=== PATIENT | male | born 1960 | race Asian ===

== ENCOUNTER 2019-07-20 11:36 | Inpatient (IN) | payer MEDICARE ==
[~2019-07-20] VITALS: Ht 170.2 cm; Wt 84.6 kg
[~2019-07-20 11:36] MED LIST: ACET-93 PO; BACL10TA PO; DIAZ10TA PO; LISI-552 PO; LISI10TA2 PO; MELA3TAB PO; METH750T3 PO; OXYC-465 PO; OXYC-471 PO; SENN-40 PO
[2019-07-20] MEDS ORDERED: DICYCLOMINE 10 MG/ML (BENTYL) 2 ML AMP IM STA (11:53)
[2019-07-20] MEDS ORDERED: KETOROLAC 30 MG/ML VIAL IVP ONE ×2 (12:00→18:15)
[2019-07-20] MEDS ORDERED: NS IV 1000 ML 1,000 ML IV SCH ×2 (12:00→14:30)
--- NOTE | 2019-07-20 12:02 | ED Abdominal Pain ---
General Chief Complaint: Abdominal/GI Problems Stated Complaint: ABD PAIN Nursing Triage Note: ABDOMINAL PAIN STARTED YESTERDAY ON THE RIGHT LOWER SIDE BUT ITS DIFFUSE PAIN NOW. WAS AT YESTERDAY FOR HIS ROUTINEBACK INJECTIONS FOR CHRONIC BACK PAIN AND HIS BACK IS HURTING MORE TODAY. LAST BM WAS YESTERDAY. Sepsis Screen: No Definite Risk Source of Information: Patient Exam Limitations: No Limitations History of Present Illness Date Seen by Provider: Jul 20, 2019 Time Seen by Provider: 11:50 Initial Comments The patient is a pleasant 58-year-old male presents for evaluation of generalized abdominal discomfort and constipation over the last 24 hours or so. He states that he has a history of chronic back pain and was at yesterday getting a back injection. He states that at that time he was not having any abdominal discomfort. He reports a normal bowel movement yesterday during the day but has been unable to have another bowel movement since that time. He denies any history of bowel obstructions but does deal with chronic constipation which she reports is secondary to his chronic back pain and opiates. He denies fevers or chills, vomiting, rectal bleeding or pain, urinary complaints, chest pain or shortness of breath, dizziness or syncope. He reports that his back pain is essentially at baseline right now. He is alert and oriented 4, calm, and appears to be in no distress at this time. Timing/Duration: 12-24 Hours Severity/Quality: Moderate Location: Generalized Abdomen Activities at Onset: None Associated Symptoms: Back Pain (CHRONIC) Allergies and Home Medications Allergies Coded Allergies: No Known Allergies (Verified Allergy, Unknown, 11/04/15) Home Medications Acetaminophen 500 Mg Tablet, 1,000 MG PO Q6H PRN for PAIN, (Reported) Baclofen 10 Mg Tablet, 10 MG PO QID Prescribed by: YULY MG on 11/08/15 1042 Lisinopril 20 Mg Tablet, 20 MG PO DAILY, (Reported) Methocarbamol 750 Mg Tablet, 750 MG PO Q8H PRN for MUSCLE SPASMS, (Reported) Oxycodone HCl/Acetaminophen 1 Each Tablet, 1 EACH PO Q4H PRN for PAIN, (Reported) Sennosides/Docusate Sodium 1 Each Tablet, 1 EACH PO BID, (Reported) Patient Home Medication List Home Medication List Reviewed: Yes Review of Systems Review of Systems Constitutional: no symptoms reported EENTM: No Symptoms Reported Respiratory: No Symptoms Reported Cardiovascular: No Symptoms Reported Gastrointestinal: Abdominal Pain, Constipated Genitourinary: No Symptoms Reported Musculoskeletal: back pain (CHRONIC) Skin: no symptoms reported Psychiatric/Neurological: No Symptoms Reported Endocrine: No Symptoms Reported Hematologic/Lymphatic: No Symptoms Reported All Other Systems Reviewed Negative Unless Noted: Yes Past [id number]-[id number] Hx Past Med/Social Hx: Reviewed Nursing Past Med/Soc Hx Patient Social History Recent Foreign Travel: No Contact w/Someone Who Travel: No Recent Infectious Disease Expo: No Immunizations Up To Date Date of Influenza Vaccine: Nov 01, 2015 Past Medical History Asthma, COPD Currently Using CPAP: No Currently Using BIPAP: No Hypertension Chronic Constipation Degenerate Disk Disease, Arthritis, Back Injury, Chronic Back Pain, Fractures, Spasms Hearing Impairment: Denies Sleep Difficulties, Anxiety, Depression Physical Exam Vital Signs Vital Signs - First Documented 07/20/19 11:53 Temp 36.7 Pulse 64 Resp 16 B/P (MAP) 136/117 (123) Pulse Ox 100 O2 Delivery Room Air Capillary Refill : Less Than 3 Seconds Height/Weight/BMI Height: 5'7.00" Weight: 185lbs. 0.0oz. 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 pool II-XII nml as tested, no motor/sensory deficits, alert, normal mood/affect, oriented x 3 Skin: normal color, warm/dry Progress/Results/Core Measures Results/Orders Lab Results Laboratory Tests Test 07/20/19 12:04 07/20/19 12:12 Range/Units Urine Color YELLOW Urine Clarity CLEAR Urine pH 5.5 5-9 Urine Specific [place] 1.025 H 1.016-1.022 Urine Protein NEGATIVE NEGATIVE Urine Glucose (UA) NEGATIVE NEGATIVE Urine Ketones NEGATIVE NEGATIVE Urine Nitrite NEGATIVE NEGATIVE Urine Bilirubin NEGATIVE NEGATIVE Urine Urobilinogen 0.2 NORMAL MG/DL Urine Leukocyte Esterase NEGATIVE NEGATIVE Urine RBC (Auto) NEGATIVE NEGATIVE Urine RBC NONE /HPF Urine WBC RARE /HPF Urine Squamous Epithelial Cells 2-5 /HPF Urine Crystals NONE /LPF Urine Bacteria NONE /HPF Urine Casts NONE /LPF Urine Mucus SMALL H /LPF Urine Culture Indicated NO White Blood Count 16.6 H 4.3-11.0 10^3/uL Red Blood Count 4.65 4.35-5.85 10^6/uL Hemoglobin 14.0 13.3-17.7 G/DL Hematocrit 43 40-54 % Mean Corpuscular Volume 92 80-99 FL Mean Corpuscular Hemoglobin 30 25-34 PG Mean Corpuscular Hemoglobin Concent 33 32-36 G/DL Red Cell Distribution Width 13.9 10.0-14.5 % Platelet Count 336 130-400 10^3/uL Mean Platelet Volume 11.0 H 7.4-10.4 FL Neutrophils (%) (Auto) 83 H 42-75 % Lymphocytes (%) (Auto) 10 L 12-44 % Monocytes (%) (Auto) 6 0-12 % Eosinophils (%) (Auto) 0 0-10 % Basophils (%) (Auto) 1 0-10 % Neutrophils # (Auto) 13.7 H 1.8-7.8 X 10^3 Lymphocytes # (Auto) 1.7 1.0-4.0 X 10^3 Monocytes # (Auto) 1.0 0.0-1.0 X 10^3 Eosinophils # (Auto) 0.0 0.0-0.3 10^3/uL Basophils # (Auto) 0.1 0.0-0.1 10^3/uL Sodium Level 140 135-145 MMOL/L Potassium Level 3.9 3.6-5.0 MMOL/L Chloride Level 104 98-107 MMOL/L Carbon Dioxide Level 27 21-32 MMOL/L Anion Gap 9 5-14 MMOL/L Blood Urea Nitrogen 17 7-18 MG/DL Creatinine 0.89 0.60-1.30 MG/DL Estimat Glomerular Filtration Rate > 60 BUN/Creatinine Ratio 19 Glucose Level 122 H 70-105 MG/DL Calcium Level 9.2 8.5-10.1 MG/DL Corrected Calcium 9.0 8.5-10.1 MG/DL Total Bilirubin 0.4 0.1-1.0 MG/DL Aspartate Amino Transf (AST/SGOT) 22 5-34 U/L Alanine Aminotransferase (ALT/SGPT) 20 0-55 U/L Alkaline Phosphatase 103 40-136 U/L Total Protein 7.2 6.4-8.2 GM/DL Albumin 4.3 3.2-4.5 GM/DL Amylase Level 416 H 25-125 U/L Lipase 981 H 8-78 U/L My Orders Orders - VANESSA VILLASENOR DO Comprehensive Metabolic Panel (07/20/19 11:53) Lipase (07/20/19 11:53) Amylase (07/20/19 11:53) Ua Culture If Indicated (07/20/19 11:53) Ed Iv/Invasive Line Start (07/20/19 11:53) Cbc With Automated Diff (07/20/19 11:53) Ct Abdomen/Pelvis W (07/20/19 11:53) Ns Iv 1000 Ml (Sodium Chloride 0.9%) (07/20/19 12:00) Dicyclomine Injection (Bentyl Injection) (07/20/19 11:53) Ketorolac Injection (Toradol Injection) (07/20/19 12:00) Iohexol Injection (Omnipaque 350 Mg/Ml 1 (07/20/19 12:30) Received Contrast (Hold Metformin- Contr (07/20/19 12:30) Sodium Chloride Flush (Catheter Flush Sy (07/20/19 12:30) Ns (Ivpb) (Sodium Chloride 0.9% Ivpb Bag (07/20/19 12:30) Manual Differential (07/20/19 12:12) Morphine Injection (Morphine Injection (07/20/19 14:25) Ns Iv 1000 Ml (Sodium Chloride 0.9%) (07/20/19 14:30) Medications Given in ED Current Medications Medications Dose Ordered Sig/Angie Route Start Time Stop Time Status Last Admin Dose Admin Iohexol 100 ml ONCE ONCE IV 07/20/19 12:30 07/20/19 12:31 DC 07/20/19 13:14 100 ML Ketorolac Tromethamine 30 mg ONCE ONCE IVP 07/20/19 12:00 07/20/19 12:01 DC 07/20/19 12:08 30 MG Sodium Chloride 10 ml NEEDED PRN IV 10/10/19 12:30 07/20/19 13:14 10 ML Sodium Chloride 100 ml ONCE ONCE IV 07/20/19 12:30 07/20/19 12:31 DC 07/20/19 13:14 80 ML Vital Signs/I&O 07/20/19 11:53 Temp 36.7 Pulse 64 Resp 16 B/P (MAP) 136/117 (123) Pulse Ox 100 O2 Delivery Room Air Blood Pressure Mean: 123 Progress Progress Note : Progress Note @1440 - Patient updated on lab and imaging results. He is agreeable to admission at [facility]. Dr. Ratliff excepts admission at this time. Diagnostic Imaging Comments [facility] [place], [place] NAME: VANESSA MASSEY [facility] REC#: [id number] PT STATUS: REG ER : 1960 PHYSICIAN: VANESSA VILLASENOR DO ADMIT DATE: 07/20/19/ER FS Draft Date of Exam:07/20/19 CT ABDOMEN/PELVIS W PROCEDURE: CT abdomen and pelvis with contrast. TECHNIQUE: Multiple contiguous axial images were obtained through the abdomen and pelvis after administration of intravenous contrast. Auto Exposure Controls were utilized during the CT exam to meet ALARA standards for radiation dose reduction. DATE: July 20, 2019. COMPARISON: None. INDICATION: 58-year-old male, abdominal pain. FINDINGS: There are predominantly linear opacities in the right middle lobe, right lower lobe, left lower lobe, and lingula compatible with atelectasis and/or scarring. The heart is not enlarged. There is no pericardial effusion. The liver is normal in size and contour. There is no identified liver lesion. The main, right, and left portal veins are grossly patent. The gallbladder is distended. There is no CT apparent gallstone. There is no inflammatory stranding specifically adjacent to the gallbladder. There is mild intrahepatic bile duct dilation. The common bile duct is abnormally dilated and measures up to 1.4 cm in diameter. There is no CT apparent common bile duct stone. There is no identified ampullary mass. The main pancreatic duct is not abnormally dilated. There is no identified pancreatic mass. There is prominent inflammatory stranding at the level of the pancreatic head and uncinate process as well as subjacent to the second and third portions of duodenum and also is mildly present at the level of the first portion of duodenum. There is no clear loss of normal pancreatic parenchymal architecture. There is no pancreatic necrosis. There is splenic tissue in the left upper quadrant including an accessory splenule on axial image 21. The adrenal glands are unremarkable. There is a 2 mm low-attenuation left renal lesion on axial image 39 which is too small to characterize. There is no hydronephrosis. There is no identified ureteral stone. Urinary bladder is unremarkable. The intestinal tract is not distended. The appendix is normal and well seen on axial image 57 and adjacent sequential images. There is abnormal mucosal enhancement of the distal stomach and first and second portions of duodenum. There is wall thickening of the second and proximal third portion of duodenum. There is no free intraperitoneal air. There is no drainable fluid collection. There is abnormal fluid attenuation along the right posterior aspect of the peritoneal cavity and also somewhat along the extent of the right ureter. There is a fat-containing intra-abdominal wall hernia without associated complication. There are atherosclerotic calcifications. The celiac axis, superior mesenteric artery, bilateral renal arteries, and inferior mesenteric artery are patent. There is no identified abnormally enlarged lymph node in the abdomen or pelvis which meets CT size criteria for adenopathy. There are postoperative related changes of the spine. There is no identified acute bony abnormality. There are several chronic-appearing left rib deformities. IMPRESSION: CT ABDOMEN AND PELVIS. 1. Prominent abnormal inflammatory stranding centered primarily adjacent to the first, second, and proximal third portions of duodenum with abnormal mucosal enhancement of the distal stomach, first and second portions of duodenum, and abnormal bowel wall thickening of the second and proximal third portions of duodenum. This is most suspicious for an infectious or inflammatory gastritis and duodenitis. 2. There is some inflammatory stranding adjacent to the pancreatic head and uncinate process is more likely related to the adjacent bowel process rather than focal pancreatitis. Correlation with laboratory values may be of benefit. 3. Abnormally dilated common bile duct and mild intrahepatic bile duct dilation without CT apparent common bile duct stone, cholelithiasis, or ampullary mass. Normal caliber of the main pancreatic duct. Recommend correlation with laboratory values. If needed, further evaluation with ERCP or MRCP may be of benefit. 4. Additional incidental findings as above. Dictated on workstation # [id number] Dict: 07/20/19 1329 Trans: 07/20/19 1405 DEREK [id number] Interpreted by: FERNANDO ANDERSON MD Electronically signed by: Departure Communication (Admissions) Time/Spoke to Admitting Phy: 14:50 Dr. Ratliff excepts admission at this time. Impression Primary Impression: Acute pancreatitis Additional Impression: Duodenitis Disposition: ADMITTED INPATIENT Condition: Stable Admissions Decision to Admit Reason: Admit from ER (General) Decision to Admit/Date: Jul 20, 2019 Time/Decision to Admit Time: 14:50 Departure-Patient Inst. Referrals: GUSTAVO COLLINS MD (PCP/Family) Primary Care Physician VANESSA VILLASENOR DO Jul 20, 2019 12:02
[2019-07-20 12:20] LABS: BILIRUBIN,URINE NEGATIVE (NEGATIVE); CLARITY,URINE CLEAR; COLOR,URINE YELLOW; GLUCOSE, URINE (UA) NEGATIVE (NEGATIVE); KETONES,URINE NEGATIVE (NEGATIVE); LEUKOCYTE ESTERASE ,URINE NEGATIVE (NEGATIVE); NITRITE,URINE NEGATIVE (NEGATIVE); PH,URINE 5.5 (5-9); PROTEIN,URINE NEGATIVE (NEGATIVE); UROBILINOGEN,URINE 0.2 MG/DL (NORMAL); WBC,URINE RARE /HPF
[2019-07-20] MEDS ORDERED: HOLD METFORMIN - RECEIVED CONTRAST 20 ML VIAL IV SCH (12:30)
[2019-07-20] MEDS ORDERED: NS 100 ML (IVPB) BAG IV ONE (12:30)
[2019-07-20] MEDS ORDERED: IOHEXOL 350 MG/ML 100 ML (OMNIPAQUE 350) VIAL IV ONE (12:30)
[2019-07-20] MEDS ORDERED: CATHETER FLUSH 10 ML SYR IV PRN (12:30)
[2019-07-20 12:32] LABS: BASOPHILS % (AUTO) 1 % (0-10); EOSINOPHILS % (AUTO) 0 % (0-10); HEMATOCRIT 43 % (40-54); LYMPHOCYTES # (AUTO) 1.7 X 10^3 (1.0-4.0); LYMPHOCYTES % (AUTO) 10 % (12-44); MEAN CORPUSCULAR HEMOGLOBIN 30 PG (25-34); MEAN CORPUSCULAR HGB CONC 33 G/DL (32-36); MEAN CORPUSCULAR VOLUME 92 FL (80-99); MONOCYTES % (AUTO) 6 % (0-12); NEUTROPHILS # (AUTO) 13.7 X 10^3 (1.8-7.8); NEUTROPHILS % (AUTO) 83 % (42-75); PLATELET COUNT 336 10^3/uL (130-400); RED CELL DISTRIBUTION WIDTH 13.9 % (10.0-14.5); WHITE BLOOD COUNT 16.6 10^3/uL (4.3-11.0)
[2019-07-20 12:33] LABS: BASOPHILS # (AUTO) 0.1 10^3/uL (0.0-0.1)
[2019-07-20 12:50] LABS: BUN/CREATININE RATIO 19; CALCIUM 9.2 MG/DL (8.5-10.1); CARBON DIOXIDE 27 MMOL/L (21-32); CHLORIDE 104 MMOL/L (98-107); CREATININE SERUM 0.89 MG/DL (0.60-1.30); GFR ESTIMATED > 60; GLUCOSE 122 MG/DL (70-105); POTASSIUM 3.9 MMOL/L (3.6-5.0); SODIUM 140 MMOL/L (135-145)
[2019-07-20 12:51] LABS: ALANINE AMINOTRANSFERASE 20 U/L (0-55); ALBUMIN 4.3 GM/DL (3.2-4.5); ALKALINE PHOSPHATASE 103 U/L (40-136); AMYLASE 416 U/L (25-125); BILIRUBIN,TOTAL 0.4 MG/DL (0.1-1.0); LIPASE 981 U/L (8-78); TOTAL PROTEIN 7.2 GM/DL (6.4-8.2)
--- NOTE | 2019-07-20 14:06 | Diagnostic Imaging Report ---
PROCEDURE: CT abdomen and pelvis with contrast. TECHNIQUE: Multiple contiguous axial images were obtained through the abdomen and pelvis after administration of intravenous contrast. Auto Exposure Controls were utilized during the CT exam to meet ALARA standards for radiation dose reduction. DATE: July 20, 2019. COMPARISON: None. INDICATION: 58-year-old male, abdominal pain. FINDINGS: There are predominantly linear opacities in the right middle lobe, right lower lobe, left lower lobe, and lingula compatible with atelectasis and/or scarring. The heart is not enlarged. There is no pericardial effusion. The liver is normal in size and contour. There is no identified liver lesion. The main, right, and left portal veins are grossly patent. The gallbladder is distended. There is no CT apparent gallstone. There is no inflammatory stranding specifically adjacent to the gallbladder. There is mild intrahepatic bile duct dilation. The common bile duct is abnormally dilated and measures up to 1.4 cm in diameter. There is no CT apparent common bile duct stone. There is no identified ampullary mass. The main pancreatic duct is not abnormally dilated. There is no identified pancreatic mass. There is prominent inflammatory stranding at the level of the pancreatic head and uncinate process as well as subjacent to the second and third portions of duodenum and also is mildly present at the level of the first portion of duodenum. There is no clear loss of normal pancreatic parenchymal architecture. There is no pancreatic necrosis. There is splenic tissue in the left upper quadrant including an accessory splenule on axial image 21. The adrenal glands are unremarkable. There is a 2 mm low-attenuation left renal lesion on axial image 39 which is too small to characterize. There is no hydronephrosis. There is no identified ureteral stone. Urinary bladder is unremarkable. The intestinal tract is not distended. The appendix is normal and well seen on axial image 57 and adjacent sequential images. There is abnormal mucosal enhancement of the distal stomach and first and second portions of duodenum. There is wall thickening of the second and proximal third portion of duodenum. There is no free intraperitoneal air. There is no drainable fluid collection. There is abnormal fluid attenuation along the right posterior aspect of the peritoneal cavity and also somewhat along the extent of the right ureter. There is a fat-containing intra-abdominal wall hernia without associated complication. There are atherosclerotic calcifications. The celiac axis, superior mesenteric artery, bilateral renal arteries, and inferior mesenteric artery are patent. There is no identified abnormally enlarged lymph node in the abdomen or pelvis which meets CT size criteria for adenopathy. There are postoperative related changes of the spine. There is no identified acute bony abnormality. There are several chronic-appearing left rib deformities. IMPRESSION: CT ABDOMEN AND PELVIS. 1. Prominent abnormal inflammatory stranding centered primarily adjacent to the first, second, and proximal third portions of duodenum with abnormal mucosal enhancement of the distal stomach, first and second portions of duodenum, and abnormal bowel wall thickening of the second and proximal third portions of duodenum. This is most suspicious for an infectious or inflammatory gastritis and duodenitis. 2. There is some inflammatory stranding adjacent to the pancreatic head and uncinate process which is more likely related to the adjacent bowel process rather than focal pancreatitis. Correlation with laboratory values may be of benefit. 3. Abnormally dilated common bile duct and mild intrahepatic bile duct dilation without CT apparent common bile duct stone, cholelithiasis, or ampullary mass. Normal caliber of the main pancreatic duct. Recommend correlation with laboratory values. If needed, further evaluation with ERCP or MRCP may be of benefit. 4. Additional incidental findings as above. Dictated by: Dictated on workstation # [id number]
[2019-07-20] MEDS ORDERED: morphine INJ 10 MG/ML 1ML (SYR OR VIAL) IVP STA (14:25)
--- NOTE | 2019-07-20 15:28 | NUR ---
TELEPHONE REPORT TAKEN FORM Ozzy MYRICK RN AT THIS TIME. THIS RN WILL ASSUME CARE OF THIS PATIENT,WHEN HE ARRIVES TO ROOM [address] [facility] IN [place].
--- NOTE | 2019-07-20 15:28 | NUR ---
REPORT GIVEN TO DEONTE LINTON AT THIS TIME.
[2019-07-20 15:41] LABS: BAND NEUTROPHILS 4 %; BASOPHILS % (MANUAL) 1 %; EOSINOPHILS % (MANUAL) 0 %; LYMPHOCYTES % (MANUAL) 18 %; MONOCYTES % (MANUAL) 6 %; NEUTROPHILS % (MANUAL) 71 %; RBC MORPH NORMAL
[2019-07-20] MEDS ORDERED: KETOROLAC 30 MG/ML VIAL ONE (17:49)
[2019-07-20] MEDS: NS IV 1000 ML 1,000 ML IV SCH (18:01)
--- NOTE | 2019-07-20 18:06 | NUR ---
Toradol 30 mg iv overrode by this RN per Dr. García, not given by this rn. The medication was given by this data warehouse manager (DEONTE Berman)
--- NOTE | 2019-07-20 18:37 | Consultation - Surgery ---
SELENA ALTAMIRANO,MED STUDENT 07/20/19 1837: History of Present Illness History of Present Illness Patient Consulted On(fransisca/time) 07/20/19 18:31 Date Seen by Provider: Jul 20, 2019 Time Seen by Provider: 18:15 History of Present Illness Surgical consult for duodenitis and pancreatitis Patient is a 58 yo male with complaints of a 1 day history of abdominal pain. He states the pain began last night and was a 10/10 on the pain scale, the location of pain was the RUQ but he states the pain is more diffuse in nature now. It is worse with deep breathing and movement and improved with pressure over the abdomen. He does note chronic constipation and states it is normal for him to use have a bowel movement every 3 days, his most recent bm was yesterday. He has felt bloating and could not sleep last night due to pain. He denies any N/V, heartburn, diarrhea, fevers at this time. He states he had a spinal injection done 2 days ago and his most recent neck surgery was around 3 months ago Allergies and Home Medications Allergies Coded Allergies: No Known Allergies (Verified Allergy, Unknown, 11/04/15) Home Medications Acetaminophen 500 Mg Tablet, 1,000 MG PO Q6H PRN for PAIN, (Reported) Baclofen 10 Mg Tablet, 10 MG PO QID Prescribed by: BRAULIO MG on 11/08/15 1042 Lisinopril 20 Mg Tablet, 20 MG PO DAILY, (Reported) Oxycodone HCl/Acetaminophen 1 Each Tablet, 1 EACH PO Q4H PRN for PAIN, (Reported) Sennosides/Docusate Sodium 1 Each Tablet, 1 EACH PO BID, (Reported) Past Gmnclgj-Rsfhiu-Ngysfa Hx Patient Social History Alcohol Use: Denies Use Recreational Drug Use: No Smoking Status: Former Smoker (quit 10 years ago) Type Used: Cigarettes 2nd Hand Smoke Exposure: No Recent Foreign Travel: No Contact w/Someone Who Travel: No Recent Infectious Disease Expo: No Recent Hopitalizations: No Immunizations Up To Date Date of Pneumonia Vaccine: Jun 11, 2017 Date of Influenza Vaccine: Nov 01, 2015 Seasonal Allergies Seasonal Allergies: No Surgeries History of Surgeries: Yes (SPLEEN 1999, 8 BACK SURGERIES) Respiratory History of Respiratory Disorde: Yes Respiratory Disorders: Asthma, COPD Cardiovascular History of Cardiac Disorders: Yes Cardiac Disorders: Hypertension Neurological History of Neurological Disord: Yes (spasms of arms, legs sometimes) Genitourinary History of Genitourinary Disor: No Gastrointestinal History of Gastrointestinal Di: Yes Gastrointestinal Disorders: Chronic Constipation (secondary to opiod use ) Musculoskeletal History of Musculoskeletal Dis: Yes (legs spasm) Musculoskeletal Disorders: Degenerate Disk Disease, Arthritis, Back Injury, Chronic Back Pain, Fractures, Spasms Endocrine History of Endocrine Disorders: No HEENT History of HEENT Disorders: No Hearing Impairment: Denies Cancer History of Cancer: No Psychosocial History of Psychiatric Problem: Yes (Melatonin for sleep) Behavioral Health Disorders: Sleep Difficulties, Anxiety, Depression Integumentary History of Skin or Integumenta: No Blood Transfusions History of Blood Disorders: No Family Medical History Significant Family History: Cancer (brother with renal cancer), Diabetes (father, brother, son), Other Conditions/Hx (son has titins muscular dystrophy) Review of Systems-General Constitutional: No chills, No fever EENTM: No blurred vision, No nose congestion, No throat pain Respiratory: No cough, No short of breath Cardiovascular: No chest pain, No syncope Gastrointestinal: abdominal pain (diffuse, worse at RUQ), constipation (chronic); No diarrhea, No heartburn, No melena, No nausea, No vomiting Genitourinary: No dysuria, No hematuria, No incontinence Musculoskeletal: back pain, joint pain, neck pain Skin: No pruritus, No rash Psychiatric/Neurological: Denies Headache; Numbness, Weakness Physical Exam-General Problems Physical Exam Vital Signs Vital Signs - First Documented 07/20/19 11:53 Temp 36.7 Pulse 64 Resp 16 B/P (MAP) 136/117 (123) Pulse Ox 100 O2 Delivery Room Air Capillary Refill : Less Than 3 Seconds General Appearance: WD/WN, no apparent distress Eyes: Bilateral Eye PERRL, Bilateral Eye EOMI HEENT: PERRL/EOMI, other (mucous membranes moist) Neck: non-tender; No lymphadenopathy (R), No lymphadenopathy (L) Respiratory: chest non-tender, lungs clear, normal breath sounds, no respiratory distress Cardiovascular: regular rate, rhythm, no murmur Peripheral Pulses: 2+ Radial Pulses (R), 2+ Radial Pulses (L) Gastrointestinal: normal bowel sounds, distended (mildly); No guarding, No rebound; tenderness (diffuse) Extremities: no pedal edema, no calf tenderness Neurologic/Psychiatric: alert, oriented x 3, abnormal gait (ambulates with cane) Skin: normal color, warm/dry Lymphatic: no adenopathy Data Review Labs Laboratory Tests 07/20/19 12:04: Urine Color YELLOW, Urine Clarity CLEAR, Urine pH 5.5, Urine Specific [place] 1.025H, Urine Protein NEGATIVE, Urine Glucose (UA) NEGATIVE, Urine Ketones NEGATIVE, Urine Nitrite NEGATIVE, Urine Bilirubin NEGATIVE, Urine Urobilinogen 0.2, Urine Leukocyte Esterase NEGATIVE, Urine RBC (Auto) NEGATIVE, Urine RBC NONE, Urine WBC RARE, Urine Squamous Epithelial Cells 2-5, Urine Crystals NONE, Urine Bacteria NONE, Urine Casts NONE, Urine Mucus SMALLH, Urine Culture Indicated NO 07/20/19 12:12: White Blood Count 16.6H, Red Blood Count 4.65, Hemoglobin 14.0, Hematocrit 43, Mean Corpuscular Volume 92, Mean Corpuscular Hemoglobin 30, Mean Corpuscular Hemoglobin Concent 33, Red Cell Distribution Width 13.9, Platelet Count 336, Mean Platelet Volume 11.0H, Neutrophils (%) (Auto) 83H, Lymphocytes (%) (Auto) 10L, Monocytes (%) (Auto) 6, Eosinophils (%) (Auto) 0, Basophils (%) (Auto) 1, Neutrophils # (Auto) 13.7H, Lymphocytes # (Auto) 1.7, Monocytes # (Auto) 1.0, Eosinophils # (Auto) 0.0, Basophils # (Auto) 0.1, Neutrophils % (Manual) 71, Lymphocytes % (Manual) 18, Monocytes % (Manual) 6, Eosinophils % (Manual) 0, Basophils % (Manual) 1, Band Neutrophils 4, Blood Morphology Comment NORMAL, Sodium Level 140, Potassium Level 3.9, Chloride Level 104, Carbon Dioxide Level 27, Anion Gap 9, Blood Urea Nitrogen 17, Creatinine 0.89, Estimat Glomerular Filtration Rate > 60, BUN/Creatinine Ratio 19, Glucose Level 122H, Calcium Level 9.2, Corrected Calcium 9.0, Total Bilirubin 0.4, Aspartate Amino Transf (AST/SGOT) 22, Alanine Aminotransferase (ALT/SGPT) 20, Alkaline Phosphatase 103, Total Protein 7.2, Albumin 4.3, Amylase Level 416H, Lipase 981H Assessment/Plan Assessment/Plan Assessment/Plan Duodenitis Pancreatitis Chronic back pain Chronic constipation Continue pain control, IVF, and antiemetics as needed. Continue NPO at this time. Clinical Quality Measures DVT/VTE Risk/Contraindication: Risk Factor Score Per Nursin RFS Level Per Nursing on Admit: 4+=Very High BRAULIO HOUSER DO 07/20/192045: History of Present Illness History of Present Illness Time Seen by Provider: 20:17 History of Present Illness Pt states he has never had pain like this before, it is worse but different than his back pain. When I walked he was on a clear liquid diet. He is very concerned about surgery. Allergies and Home Medications Allergies Coded Allergies: No Known Allergies (Verified Allergy, Unknown, 11/04/15) Home Medications Acetaminophen 500 Mg Tablet, 1,000 MG PO Q6H PRN for PAIN, (Reported) Baclofen 10 Mg Tablet, 10 MG PO QID Prescribed by: BRAULIO MG on 11/08/15 1042 Lisinopril 20 Mg Tablet, 20 MG PO DAILY, (Reported) Oxycodone HCl/Acetaminophen 1 Each Tablet, 1 EACH PO Q4H PRN for PAIN, (Reported) Sennosides/Docusate Sodium 1 Each Tablet, 1 EACH PO BID, (Reported) Patient Home Medication List Home Medication List Reviewed: Yes Past Ywahkkc-Ilbxgw-Xabxzs Hx Patient Social History Alcohol Use: Denies Use Surgeries History of Surgeries: Yes Surgeries: Orthopedic Review of Systems-General Other pt denies any hx of abnormal bleeding or bruising Physical Exam-General Problems Physical Exam Gastrointestinal: other (firm area just above umbilicus and it is most tender here) Data Review Radiology CT ABDOMEN/PELVIS W PROCEDURE: CT abdomen and pelvis with contrast. TECHNIQUE: Multiple contiguous axial images were obtained through the abdomen and pelvis after administration of intravenous contrast. Auto Exposure Controls were utilized during the CT exam to meet ALARA standards for radiation dose reduction. DATE: July 20, 2019. COMPARISON: None. INDICATION: 58-year-old male, abdominal pain. FINDINGS: There are predominantly linear opacities in the right middle lobe, right lower lobe, left lower lobe, and lingula compatible with atelectasis and/or scarring. The heart is not enlarged. There is no pericardial effusion. The liver is normal in size and contour. There is no identified liver lesion. The main, right, and left portal veins are grossly patent. The gallbladder is distended. There is no CT apparent gallstone. There is no inflammatory stranding specifically adjacent to the gallbladder. There is mild intrahepatic bile duct dilation. The common bile duct is abnormally dilated and measures up to 1.4 cm in diameter. There is no CT apparent common bile duct stone. There is no identified ampullary mass. The main pancreatic duct is not abnormally dilated. There is no identified pancreatic mass. There is prominent inflammatory stranding at the level of the pancreatic head and uncinate process as well as subjacent to the second and third portions of duodenum and also is mildly present at the level of the first portion of duodenum. There is no clear loss of normal pancreatic parenchymal architecture. There is no pancreatic necrosis. There is splenic tissue in the left upper quadrant including an accessory splenule on axial image 21. The adrenal glands are unremarkable. There is a 2 mm low-attenuation left renal lesion on axial image 39 which is too small to characterize. There is no hydronephrosis. There is no identified ureteral stone. Urinary bladder is unremarkable. The intestinal tract is not distended. The appendix is normal and well seen on axial image 57 and adjacent sequential images. There is abnormal mucosal enhancement of the distal stomach and first and second portions of duodenum. There is wall thickening of the second and proximal third portion of duodenum. There is no free intraperitoneal air. There is no drainable fluid collection. There is abnormal fluid attenuation along the right posterior aspect of the peritoneal cavity and also somewhat along the extent of the right ureter. There is a fat-containing intra-abdominal wall hernia without associated complication. There are atherosclerotic calcifications. The celiac axis, superior mesenteric artery, bilateral renal arteries, and inferior mesenteric artery are patent. There is no identified abnormally enlarged lymph node in the abdomen or pelvis which meets CT size criteria for adenopathy. There are postoperative related changes of the spine. There is no identified acute bony abnormality. There are several chronic-appearing left rib deformities. IMPRESSION: CT ABDOMEN AND PELVIS. 1. Prominent abnormal inflammatory stranding centered primarily adjacent to the first, second, and proximal third portions of duodenum with abnormal mucosal enhancement of the distal stomach, first and second portions of duodenum, and abnormal bowel wall thickening of the second and proximal third portions of duodenum. This is most suspicious for an infectious or inflammatory gastritis and duodenitis. 2. There is some inflammatory stranding adjacent to the pancreatic head and uncinate process which is more likely related to the adjacent bowel process rather than focal pancreatitis. Correlation with laboratory values may be of benefit. 3. Abnormally dilated common bile duct and mild intrahepatic bile duct dilation without CT apparent common bile duct stone, cholelithiasis, or ampullary mass. Normal caliber of the main pancreatic duct. Recommend correlation with laboratory values. If needed, further evaluation with ERCP or MRCP may be of benefit. 4. Additional incidental findings as above. Dictated by: Dictated on workstation # [id number] Assessment/Plan Assessment/Plan Assessment/Plan I had long discussion with pt regarding what next step was and why I think he probably needs surgery; I believe his pancreatitis is probably due to Gallstones. I thought I may have actually seen a stone in duodenum on CT. I will order an US of GB for tomorrow am. I made him npo and switched his pain medications to IV Dilaudid. I explained what we saw on CT and why food (any food) including liquids is bad for pancreatitis and duodenitis. If he agrees to surgery, we need to wait until his pain is almost gone and pancreatic enzymes are trending down. He understood all of this and I will talk to him more tomorrow and his . Supervisory-Addendum Brief Verification & Attestation Participated in pt care: history, MDM, physical Personally performed: exam, history, MDM Care discussed with: Medical Student Procedures: n/a Verification and Attestation of Medical Student E/M Service A medical student performed and documented this service in my presence. I reviewed and verified all information documented by the medical student and made modifications to such information, when appropriate. I personally performed the physical exam and medical decision making. Braulio Houser, Jul 20, 2019,20:46 SELENA ALTAMIRANO MED STUDENT Jul 20, 2019 18:37 BRAULIO HOUSER DO Jul 20, 2019 20:46
[2019-07-20 20:00] VITALS: BP 144/70
[2019-07-20] MEDS ORDERED: HYDROmorphone 2 MG/ML VIAL (DILAUDID) ONE (20:43)
[2019-07-20] MEDS: HYDROmorphone 2 MG/ML VIAL (DILAUDID) IV PRN ×2 (20:44→23:27)
[2019-07-20] MEDS ORDERED: ONDANSETRON 4 MG/2 ML (SDV) Z0FRAN IVP PRN (20:45)
[2019-07-20] MEDS ORDERED: ALPRAZolam 0.25 MG (XANAX) TAB PO PRN (20:45)
[2019-07-20] MEDS ORDERED: CALCIUM CARBONATE 500 MG (TUMS) TAB.CHEW PO PRN (20:45)
[2019-07-20] MEDS ORDERED: ONDANSETRON 4 MG (ZOFRAN) ORAL DISSOLVE TAB PO PRN (20:45)
[2019-07-20] MEDS ORDERED: ACETAMINOPHEN 500 MG TAB (TYLENOL) PO PRN (20:45)
[2019-07-20] MEDS ORDERED: diphenhydrAMINE 25 MG TAB (BENADRYL) PO PRN (20:45)
[2019-07-20] MEDS ORDERED: MELATONIN 3 MG TABLET PO PRN (20:45)
--- NOTE | 2019-07-20 20:48 | History & Physical-Hospitalist ---
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 Patient reports he has not had any alcohol for 15 years and has not smoked since that time also. He just had an epidural pain injection in on Wednesday and Dr García will be consulted for GB stones that are assessed on CT scan. Source: patient, RN/MD Exam Limitations: no limitations Date Seen 07/20/19 Time Seen by a Provider: 17:30 Attending Physician Ronit Ratliff Pankaj K MD Referring Physician Date of Admission Jul 20, 2019 at 14:55 Home Medications & Allergies Home Medications Reviewed patient Home Medication Reconciliation performed by pharmacy medication reconciliations ocular care technician and/or nursing. Patients Allergies have been reviewed. 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) Alcohol Use: Denies Use Recreational Drug Use: No Smoking Status: Former Smoker (quit 10 years ago) Type Used: Cigarettes 2nd Hand Smoke Exposure: No Recent Foreign Travel: No Contact w/other who traveled: No Recent Hopitalizations: No Recent Infectious Disease Expo: No Immunizations Up To Date Date of Pneumonia Vaccine: Jun 11, 2017 Date of Influenza Vaccine: Nov 01, 2015 Seasonal Allergies Seasonal Allergies: No Past Medical History Surgeries: Orthopedic (spine x 4) Currently Using CPAP: No Currently Using BIPAP: No Cardiac: Hypertension Gastrointestinal: Chronic Constipation (secondary to opiod use ) Musculoskeletal: Degenerate Disk Disease, Arthritis, Back Injury, Chronic Back Pain, Fractures, Spasms Hearing Impairment: Denies Psychosocial: Sleep Difficulties, Anxiety, Depression History of Blood Disorders: No Family History Cancer (brother with renal cancer), Diabetes (father, brother, son), Other Conditions/Hx (son has titins muscular dystrophy) Review of Systems Constitutional: see HPI EENTM: no symptoms reported Respiratory: no symptoms reported Cardiovascular: no symptoms reported Gastrointestinal: abdominal pain, loss of appetite, nausea, vomiting Genitourinary: no symptoms reported Musculoskeletal: no symptoms reported Skin: no symptoms reported Psychiatric/Neurological: No Symptoms Reported All Other Systems Reviewed Negative Unless Noted: Yes Physical Exam Physical Exam Vital Signs Vital Signs - First Documented 07/20/19 11:53 Temp 36.7 Pulse 64 Resp 16 B/P (MAP) 136/117 (123) Pulse Ox 100 O2 Delivery Room Air Capillary Refill : Less Than 3 Seconds Height, Weight, BMI Height: 5'7.00" Weight: 185lbs. 0.0oz. [id number]; 29.20 BMI Method: General Appearance: No Apparent Distress, WD/WN, Chronically ill Eyes: Right Eye Normal Inspection, Right Eye PERRL HEENT: PERRL/EOMI, Normal ENT Inspection, Pharynx Normal, Moist Mucous Membranes Neck: Full Range of Motion, Normal Inspection, Non Tender Respiratory: Chest Non Tender, Lungs Clear, Normal Breath Sounds, No Accessory Muscle Use, No Respiratory Distress Cardiovascular: Regular Rate, Rhythm, No Edema, No Gallop, No JVD, No Murmur, Normal Peripheral Pulses Gastrointestinal: Normal Bowel Sounds, No Organomegaly, No Pulsatile Mass, Soft, Tenderness Back: Normal Inspection, No CVA Tenderness, No Vertebral Tenderness Extremity: Normal Capillary Refill, Normal Inspection, Normal Range of Motion, Non Tender, No Calf Tenderness, No Pedal Edema Neurologic/Psychiatric: Alert, Oriented x3, No Motor/Sensory Deficits, Normal Mood/Affect, 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 Assessment/Plan Admission Diagnosis Assessment: Duodenitis with pancreatitis Possible stones in GB Chronic back pain s/p epidural pain injection Wednesday in Plan: Appreciate Dr García Pain control IVF Admission Status: Inpatient Order (span 2 midnights) Reason for Inpatient Admission: Duodenitis with pancreatits Diagnosis/Problems Diagnosis/Problems (1) Acute pancreatitis Status: Acute (2) Duodenitis Status: Acute (3) Lumbosacral radiculopathy due to degenerative joint disease of spine Status: Acute Clinical Quality Measures DVT/VTE Risk/Contraindication: Risk Factor Score Per Nursin RFS Level Per Nursing on Admit: 4+=Very High RONIT RATLIFF DO Jul 20, 2019 20:48
[2019-07-20] MEDS: MONTELUKAST 10 MG (SINGULAIR) TAB PO SCH (21:50)
[2019-07-21] VITALS (12 sets, daily range): BP systolic 98–157; BP diastolic 56–86
[2019-07-21] MEDS: NS IV 1000 ML 1,000 ML IV SCH ×4 (00:35→18:38)
[2019-07-21] MEDS: HYDROmorphone 2 MG/ML VIAL (DILAUDID) IV PRN ×7 (05:30→23:21)
[2019-07-21 06:48] LABS: BASOPHILS % (AUTO) 0 % (0-10); EOSINOPHILS # (AUTO) 0.1 10^3/uL (0.0-0.3); EOSINOPHILS % (AUTO) 1 % (0-10); HEMATOCRIT 36 % (40-54); HEMOGLOBIN 12.1 G/DL (13.3-17.7); LYMPHOCYTES # (AUTO) 1.6 X 10^3 (1.0-4.0); LYMPHOCYTES % (AUTO) 15 % (12-44); MEAN CORPUSCULAR HEMOGLOBIN 30 PG (25-34); MEAN CORPUSCULAR HGB CONC 33 G/DL (32-36); MEAN CORPUSCULAR VOLUME 90 FL (80-99); MEAN PLATELET VOLUME 11.6 FL (7.4-10.4); MONOCYTES # (AUTO) 0.7 X 10^3 (0.0-1.0); MONOCYTES % (AUTO) 7 % (0-12); NEUTROPHILS # (AUTO) 8.3 X 10^3 (1.8-7.8); NEUTROPHILS % (AUTO) 78 % (42-75); PLATELET COUNT 274 10^3/uL (130-400); RED CELL DISTRIBUTION WIDTH 14.1 % (10.0-14.5); WHITE BLOOD COUNT 10.6 10^3/uL (4.3-11.0)
[2019-07-21 07:15] LABS: ALANINE AMINOTRANSFERASE 19 U/L (0-55); ALBUMIN 3.4 GM/DL (3.2-4.5); ALKALINE PHOSPHATASE 90 U/L (40-136); AMYLASE 171 U/L (25-125); BILIRUBIN,TOTAL 0.5 MG/DL (0.1-1.0); BUN/CREATININE RATIO 21; CALCIUM 7.9 MG/DL (8.5-10.1); CARBON DIOXIDE 19 MMOL/L (21-32); CHLORIDE 111 MMOL/L (98-107); CREATININE SERUM 0.72 MG/DL (0.60-1.30); GFR ESTIMATED > 60; GLUCOSE 87 MG/DL (70-105); LIPASE 448 U/L (8-78); SODIUM 139 MMOL/L (135-145); TOTAL PROTEIN 5.7 GM/DL (6.4-8.2)
--- NOTE | 2019-07-21 07:53 | Progress Note - Surgery ---
SELENA ALTAMIRANO,MED STUDENT 07/21/19 0753: Subjective Date Seen by a Provider: Jul 21, 2019 Time Seen by a Provider: 07:30 Subjective/Events-last exam Patient seen and examined. He states he has continued to have abdominal pain that is now an 8/10 on the pain scale. It is diffuse but worsened along the RUQ and periumbilical area. He admits to some nausea but no vomiting or diarrhea. No bm since admission but he is passing gas. Diet was switched to NPO last night. Review of Systems General: No Chills, No Fatigue HEENT: No Head Aches, No Visual Changes Pulmonary: No Dyspnea, No Cough Cardiovascular: No: Chest Pain Gastrointestinal: Nausea, Abdominal Pain; No: Vomiting, Diarrhea, Constipation, Melena Genitourinary: No Dysuria, No Hematuria Musculoskeletal: neck pain, back pain, leg pain Neurological: Weakness (bilateral LE); No: Confusion Objective Exam Vital Signs Date Time Temp Pulse Resp B/P (MAP) Pulse Ox O2 Delivery O2 Flow Rate FiO2 07/21/19 04:20 36.6 56 18 136/73 (94) 96 Room Air 07/21/19 00:40 36.9 54 18 118/67 (84) 96 Room Air 07/20/19 20:06 Room Air 07/20/19 20:00 37.3 66 18 144/70 (94) 98 Room Air 07/20/19 15:39 36.4 63 18 140/76 98 Room Air 07/20/19 11:53 36.7 64 16 136/117 (123) 100 Room Air I & O 07/21/19 07:00 Intake Total 1480 ml Balance 1480 ml Capillary Refill : Less Than 3 Seconds General Appearance: No Apparent Distress, WD/WN HEENT: PERRL/EOMI, Moist Mucous Membranes Neck: Non Tender; No Lymphadenopathy (L), No Lymphadenopathy (R) Respiratory: Chest Non Tender, Lungs Clear, Normal Breath Sounds, No Accessory Muscle Use, No Respiratory Distress Cardiovascular: Regular Rate, Rhythm, No Murmur Peripheral Pulses: 2+ Radial Pulses (R), 2+ Radial Pulses (L) Gastrointestinal: normal bowel sounds, distended; No guarding, No rebound; tenderness (worst at RUQ), hernia (umbilical) Extremity: No Calf Tenderness, No Pedal Edema Neurologic/Psychiatric: Alert, Oriented x3 Skin: Normal Color, Warm/Dry Lymphatic: No Adenopathy Results Lab Laboratory Tests 07/20/19 12:04: Urine Color YELLOW, Urine Clarity CLEAR, Urine pH 5.5, Urine Specific [place] 1.025H, Urine Protein NEGATIVE, Urine Glucose (UA) NEGATIVE, Urine Ketones NEGATIVE, Urine Nitrite NEGATIVE, Urine Bilirubin NEGATIVE, Urine Urobilinogen 0.2, Urine Leukocyte Esterase NEGATIVE, Urine RBC (Auto) NEGATIVE, Urine RBC NONE, Urine WBC RARE, Urine Squamous Epithelial Cells 2-5, Urine Crystals NONE, Urine Bacteria NONE, Urine Casts NONE, Urine Mucus SMALLH, Urine Culture Indicated NO 07/20/19 12:12: White Blood Count 16.6H, Red Blood Count 4.65, Hemoglobin 14.0, Hematocrit 43, Mean Corpuscular Volume 92, Mean Corpuscular Hemoglobin 30, Mean Corpuscular Hemoglobin Concent 33, Red Cell Distribution Width 13.9, Platelet Count 336, Mean Platelet Volume 11.0H, Neutrophils (%) (Auto) 83H, Lymphocytes (%) (Auto) 10L, Monocytes (%) (Auto) 6, Eosinophils (%) (Auto) 0, Basophils (%) (Auto) 1, Neutrophils # (Auto) 13.7H, Lymphocytes # (Auto) 1.7, Monocytes # (Auto) 1.0, Eosinophils # (Auto) 0.0, Basophils # (Auto) 0.1, Neutrophils % (Manual) 71, Lymphocytes % (Manual) 18, Monocytes % (Manual) 6, Eosinophils % (Manual) 0, Basophils % (Manual) 1, Band Neutrophils 4, Blood Morphology Comment NORMAL, Sodium Level 140, Potassium Level 3.9, Chloride Level 104, Carbon Dioxide Level 27, Anion Gap 9, Blood Urea Nitrogen 17, Creatinine 0.89, Estimat Glomerular Filtration Rate > 60, BUN/Creatinine Ratio 19, Glucose Level 122H, Calcium Level 9.2, Corrected Calcium 9.0, Total Bilirubin 0.4, Aspartate Amino Transf (AST/SGOT) 22, Alanine Aminotransferase (ALT/SGPT) 20, Alkaline Phosphatase 103, Total Protein 7.2, Albumin 4.3, Amylase Level 416H, Lipase 981H 07/21/19 05:27: Sodium Level 139, Potassium Level 4.0, Chloride Level 111H, Carbon Dioxide Level 19L, Anion Gap 9, Blood Urea Nitrogen 15, Creatinine 0.72, Estimat Glomerular Filtration Rate > 60, BUN/Creatinine Ratio 21, Glucose Level 87, Calcium Level 7.9L, Corrected Calcium 8.4L, Total Bilirubin 0.5, Aspartate Amino Transf (AST/SGOT) 16, Alanine Aminotransferase (ALT/SGPT) 19, Alkaline Phosphatase 90, Total Protein 5.7L, Albumin 3.4, Amylase Level 171H, Lipase 448H 07/21/19 05:37: White Blood Count 10.6, Red Blood Count 4.04L, Hemoglobin 12.1L, Hematocrit 36L, Mean Corpuscular Volume 90, Mean Corpuscular Hemoglobin 30, Mean Corpuscular Hemoglobin Concent 33, Red Cell Distribution Width 14.1, Platelet Count 274, M fausto Platelet Volume 11.6H, Neutrophils (%) (Auto) 78H, Lymphocytes (%) (Auto) 15, Monocytes (%) (Auto) 7, Eosinophils (%) (Auto) 1, Basophils (%) (Auto) 0, Neutrophils # (Auto) 8.3H, Lymphocytes # (Auto) 1.6, Monocytes # (Auto) 0.7, Eosinophils # (Auto) 0.1, Basophils # (Auto) 0.0 Assessment/Plan Assessment/Plan Assessment/Plan Duodenitis Pancreatitis Chronic Back Pain Continue IVF, pain control, and antiemetics as needed. Patient to stay NPO. Gallbladder US pending. Pancreatic ezymes have lowered but patient still admits to some abdominal pain. discussed with the patient he will likely need surgery to remove his gallbladder as gallstones are most likely the cause of his pancreatitis. Clinical Quality Measures DVT/VTE Risk/Contraindication: Risk Factor Score Per Nursin RFS Level Per Nursing on Admit: 4+=Very High BRAULIO GARCÍA DO 07/21/19 1142: Subjective Time Seen by a Provider: 10:39 Assessment/Plan Assessment/Plan Assessment/Plan Plan is to go to OR today for Laparoscopic Cholecystectomy possible cholangiogram, possible open. US showed probable acute cholecystitis. Discussed the case with pt, risks and complications not limited to pain, bleeding, infection, scar damage to bowel or bile ducts and need for further procedure. All questions answered to pts satisfaction. Supervisory-Addendum Brief Verification & Attestation Participated in pt care: history, MDM, physical Personally performed: exam, history, MDM Care discussed with: Medical Student Procedures: n/a Verification and Attestation of Medical Student E/M Service A medical student performed and documented this service in my presence. I reviewed and verified all information documented by the medical student and made modifications to such information, when appropriate. I personally performed the physical exam and medical decision making. Braulio García, Jul 21, 2019,11:41 SELENA ALTAMIRANO MED STUDENT Jul 21, 2019 07:53 BRAULIO GARCÍA DO Jul 21, 2019 11:42
--- NOTE | 2019-07-21 08:30 | Diagnostic Imaging Report ---
PROCEDURE: US Gallbladder. TECHNIQUE: Multiple real-time grayscale images were obtained over the right upper quadrant in various projections. INDICATION: Pancreatitis and abdominal pain. FINDINGS: The liver measures 15.4 cm in length. The portal vein is patent and shows normal direction of flow. No discrete liver mass is detected. There are echogenicities in the region of the gallbladder neck, which are non-mobile. Gallbladder wall thickness is borderline at approximately 4 mm. There is minimal pericholecystic fluid present. In addition, the extrahepatic bile duct is dilated to 16 mm. No definite common duct stones are identified. Pancreas is obscured by bowel gas. The right kidney is without evidence of calculi or hydronephrosis. There is no ascites. IMPRESSION: 1. Findings suspicious for cholelithiasis and acute cholecystitis. Extrahepatic bile duct is also dilated to 16 mm. Common duct stone cannot be entirely excluded. If this is of concern, MRCP may be useful for further evaluation. Dictated by: Dictated on workstation # [id number]
[2019-07-21] MEDS ORDERED: OXYC10TA7 PO (08:54)
[2019-07-21] MEDS ORDERED: FAMO20TA5 PO (08:54)
[2019-07-21] MEDS ORDERED: RT-ALBUINH IH (08:54)
[2019-07-21] MEDS ORDERED: FLUT1AER INH (08:54)
[2019-07-21] MEDS ORDERED: IPRA3AMP31 NEB (08:54)
[2019-07-21] MEDS ORDERED: BACL10TA PO (08:54)
[2019-07-21] MEDS ORDERED: MONT10TA24 PO (08:54)
--- NOTE | 2019-07-21 08:56 | NUR ---
SPOKE WITH THE PATIENT ABOUT HIS MEDICATIONS. WE WENT OVER THE EXT MED HX AND HE VERIFIED HOW HE TAKES EACH MEDICATION. HE TAKES TYLENOL PRN AND SENOKOT OTC.
[2019-07-21] MEDS ORDERED: fentaNYL INJECTION 100 MCG/2 ML AMP ONE (11:02)
[2019-07-21] MEDS ORDERED: LIDOCAINE PF 2% 5 ML (XYLOCAINE) VIAL ONE (11:02)
[2019-07-21] MEDS ORDERED: proPOfol 200 MG/20 ML (DIPRIVAN) VIAL IV ONE (11:02)
[2019-07-21] MEDS ORDERED: DEXAMETHASONE 10 MG/ML (DECADRON) 1 ML VIAL ONE (11:02)
[2019-07-21] MEDS ORDERED: ONDANSETRON 4 MG/2 ML (SDV) Z0FRAN ONE (11:02)
[2019-07-21] MEDS ORDERED: SEVOFLURANE (ULTANE) 15 ML INHAL SOLN ONE ×7 (11:02→13:19)
[2019-07-21] MEDS ORDERED: MIDAZOLAM 2 MG/2 ML (VERSED) VIAL ONE (11:03)
[2019-07-21] MEDS ORDERED: BUP/EPI 0.5% 1:200,000 (SENSORCAINE) 30 ML VIAL ONE (11:13)
[2019-07-21] MEDS: LACTATED RINGERS 1,000 ML IV PRN ×3 (11:15→13:01)
--- NOTE | 2019-07-21 11:18 | NUR ---
TO SURGERY PER BED, VERBALIZED UNDERSTANDING OF SURGERY
[2019-07-21] MEDS ORDERED: ceFAZolin INJECTION 2,000 MG ONE (11:23)
--- NOTE | 2019-07-21 11:27 | Progress Note - Hospitalist ---
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 Patient reports he has not had any alcohol for 15 years and has not smoked since that time also. He just had an epidural pain injection in on Wednesday and Dr García will be consulted for GB stones that are assessed on CT scan. Subjective/Events-last exam Pt had an ultra sound and he is willing to have Cholecystectomy today Labs are much improved I met his today Overall feels pretty good as long as the Dilaudid pain medication is given Ultrasound shows suspicion for cholelithiasis and acute cholecystitis Review of Systems Gastrointestinal: Abdominal Pain Objective Exam Vital Signs Vital Signs Date Time Temp Pulse Resp B/P (MAP) Pulse Ox O2 Delivery O2 Flow Rate FiO2 07/21/19 16:00 36.9 82 16 111/56 (74) 94 Room Air 07/21/19 14:00 3 Capillary Refill : Less Than 3 SecondsLess Than 3 Seconds General Appearance: No Apparent Distress, WD/WN Respiratory: Lungs Clear Cardiovascular: Regular Rate, Rhythm Neurologic/Psychiatric: Alert, Oriented x3, No Motor/Sensory Deficits, Normal Mood/Affect Results/Procedures Lab Laboratory Tests 07/21/19 05:27 07/21/19 05:37 Patient resulted labs reviewed. Assessment/Plan Assessment and Plan Assess & Plan/Chief Complaint Assessment: Acute pancreatitis Acute duodenitis Acute cholecystitis Chronic back pain Plan: Choly Pain control Diagnosis/Problems Diagnosis/Problems (1) Acute pancreatitis Status: Acute (2) Duodenitis Status: Acute (3) Lumbosacral radiculopathy due to degenerative joint disease of spine Status: Acute Clinical Quality Measures DVT/VTE Risk/Contraindication: Risk Factor Score Per Nursin RFS Level Per Nursing on Admit: 4+=Very High DEEPAK OWEN DO Jul 21, 2019 11:27
[2019-07-21] MEDS ORDERED: ceFAZolin INJECTION 1,000 MG VIAL IV ONE (11:30)
[2019-07-21] MEDS ORDERED: NEOSTIGMINE 3 MG/3 ML VIAL ONE (12:58)
[2019-07-21] MEDS ORDERED: GLYCOPYRROLATE 0.2 MG/ML (ROBINUL) 2 ML VIAL ONE (12:58)
[2019-07-21] MEDS ORDERED: HOLD METFORMIN - RECEIVED CONTRAST 20 ML VIAL IV SCH (13:00)
[2019-07-21] MEDS ORDERED: IOHEXOL 300 MG/ML 30 ML (OMNIPAQUE 300) VIAL IV ONE (13:00)
[2019-07-21] MEDS ORDERED: ROCURONIUM 10 MG/ML 5 ML SYRINGE IV ONE (13:13)
--- NOTE | 2019-07-21 13:18 | Progress Note-Post Operative ---
Post-Operative Progess Note Surgeon (s)/Commercial Retoucher (s) Surgeon YULY HOUSER DO Commercial Retoucher: Khadra Pre-Operative Diagnosis Acute Cholecystitis/Cholelithiasis with Pancreatitis Post-Operative Diagnosis Same plus adhesions Procedure & Operative Findings Date of Procedure 07/21/19 Procedure Performed/Findings Lap Ann with IOC Anesthesia Type GET Estimated Blood Loss Estimated blood loss (mL): minimal Specimens/Packing Specimens Removed GB and contents YULY HOUSER DO Jul 21, 2019 13:18
[2019-07-21] MEDS ORDERED: fentaNYL INJECTION 100 MCG/2 ML AMP IVP ONE (13:45)
[2019-07-21] MEDS ORDERED: morphine INJ 10 MG/ML 1ML (SYR OR VIAL) IVP ONE (13:45)
[2019-07-21] MEDS ORDERED: ONDANSETRON 4 MG/2 ML (SDV) Z0FRAN IVP PRN (13:45)
--- NOTE | 2019-07-21 13:50 | Diagnostic Imaging Report ---
INDICATION: Fluoroscopy for intraoperative cholangiogram. Patient has cholecystitis. Fluoroscopy was provided in the OR during intraoperative cholangiogram. 13 seconds of fluoroscopic time was utilized. Images demonstrate contrast being injected via the cystic duct remnant. Extra hepatic bile duct is dilated. No filling defects are seen to suggest retained stone. IMPRESSION: Fluoroscopy for intraoperative cholangiogram. Dictated by: Dictated on workstation # [id number]
[2019-07-21] MEDS: MONTELUKAST 10 MG (SINGULAIR) TAB PO SCH (20:00)
--- NOTE | 2019-07-21 20:00 | NUR ---
scanner in pt room will not work. all medication not able to scan.
--- NOTE | 2019-07-21 20:30 | NUR ---
SITE ABOVE THE UMBILICUS IS DRAINING SMALL AMOUNT OF BRIGHT RED BLOOD. 4X4 AND TAPE APPLIED. DR. HOUSER CALLED AT THIS TIME AND INFORMED OF BLEEDING. NO NEW ORDERS.
[2019-07-22] VITALS: BP 140/64
--- NOTE | 2019-07-22 00:59 | OPERATIVE REPORT ---
DATE OF SERVICE: PREOPERATIVE DIAGNOSES: Acute cholecystitis, cholelithiasis, and pancreatitis. POSTOPERATIVE DIAGNOSES: Acute cholecystitis, cholelithiasis, pancreatitis, and adhesions. PROCEDURE: Laparoscopic cholecystectomy, intraoperative cholangiogram. SURGEON: Braulio García DO. LOAN CLERK: Nilton Gaviria DO. ANESTHESIA: General endotracheal tube. SPECIMEN: Gallbladder and contents. BLOOD LOSS: Minimal. FLUIDS: Per anesthesia. POSTOPERATIVE CONDITION: Stable. INDICATION FOR PROCEDURE: The patient is a 58-year-old male who has severe abdominal pain, pancreatitis, and CT and ultrasound indicates cholelithiasis and cholecystitis. He also has duodenitis and inflammation around the area. FINDINGS: The patient had adhesions from previous surgery. He also had a lot of murky fluid, probably from the inflammation from the duodenitis and a lot of adhesions to the gallbladder. Gallbladder was also very thickened and edematous. PROCEDURE NOTE: After informed consent was obtained, the patient was brought to the operating room, placed on the table in supine position, sterilely prepped and draped in normal fashion. Local lidocaine was used to infiltrate the skin above the umbilicus. I made the incision with #11 blade, carried down through the skin into subcutaneous tissue, then deepened down through subcutaneous tissue with Bovie electrocautery down to the fascia. Fascia was incised with Bovie electrocautery and bluntly entered the abdomen, swept a finger around, placed limited trocar port under direct visualization, created pneumoperitoneum. There were lot of adhesions in the midline, so placed 2 ports laterally in the right upper quadrant, 5 mm incisions with local lidocaine, 11 blade for stab incision and VersaStep system, all done under direct visualization. I then switched to 5 mm camera so we could see and then started taking these adhesions down with the Bovie electrocautery as well as with scissors. Once we completely freed this up, then able to place a subxiphoid again with local lidocaine, 11 blade for stab incision and VersaStep system, all done under direct visualization. The patient was then placed in reverse Trendelenburg, slightly rotated left, lot of adhesions of omentum to the liver. These were carefully taken down, then we were able to visualize the gallbladder. It looked edematous and thickened and distended. Able to grasp this at the fundus and taken in superior direction, started pushing down the adhesions. This was indicated with acute cholecystitis, lot of murky fluid, and edema. Carefully able to push all this out away, then grasped down Milady's pouch and pulled in inferolateral direction, started dissecting out cystic duct and cystic artery, able to get around the cystic duct and the cystic artery, placed one clip distally on the cystic duct and then one distally and one proximal in the cystic artery. Cut the cystic duct jail through Metzenbaum scissors. Placed a cholangiogram catheter and shot a cholangiogram. Got good spillage of dye down the cystic duct into the common bile duct and down into the intestine, also went into the pancreatic duct as well as up into common hepatic. I did not see any stones in the duct. Removed the cholangiogram catheter, placed 2 clips proximally on the cystic duct and cut the cystic artery and the cystic duct with Metzenbaum scissors and then removed the gallbladder from the liver with L-hook cautery, which was completely removed, placed a bag in the abdomen, placed the gallbladder in the bag and removed this through the supraumbilical incision. Placed the port back in the abdomen, obtained hemostasis in the bed of liver with Bovie electrocautery. There was no bleeding at the end of the case. Copiously irrigated with normal saline, suctioned this out, suctioned out all fluid in the pelvis. Placed the patient supine and then removed all ports under direct visualization, allowed pneumoperitoneum to escape. Closed the supraumbilical incision, closing the fascia with 0 Vicryl [id number] suture. Copiously irrigated incisions with normal saline, closing the 3 small 5 mm incisions with single interrupted 4-0 undyed Monocryl subcuticular stitch, closed the supraumbilical incision with 3 interrupted 4-0 undyed Monocryl subcuticular stitches. Area was cleaned and dried. Dermabond placed as well as Band-Aids. The patient was transferred to recovery room in stable condition. Sponge, instrument, and needle count correct at the end of the case. Dr. Gaviria assisted in this case helping to make incisions, close incisions, identify anatomy, and hold anatomy out of the way. Job ID: [id number] DocumentID: [id number] Dictated Date: 07/21/2019 14:17:22 Business Administration Professor Date: 07/22/2019 00:59:18 Dictated By: BRAULIO GARCÍA DO
[2019-07-22] MEDS: NS IV 1000 ML 1,000 ML IV SCH ×2 (01:30→09:51)
[2019-07-22] MEDS: HYDROmorphone 2 MG/ML VIAL (DILAUDID) IV PRN ×5 (01:33→15:48)
[2019-07-22 04:00] VITALS: BP 139/78
[2019-07-22 07:12] LABS: BASOPHILS % (AUTO) 0 % (0-10); EOSINOPHILS % (AUTO) 0 % (0-10); HEMATOCRIT 35 % (40-54); HEMOGLOBIN 11.7 G/DL (13.3-17.7); LYMPHOCYTES # (AUTO) 1.4 X 10^3 (1.0-4.0); LYMPHOCYTES % (AUTO) 10 % (12-44); MEAN CORPUSCULAR HEMOGLOBIN 30 PG (25-34); MEAN CORPUSCULAR HGB CONC 33 G/DL (32-36); MEAN CORPUSCULAR VOLUME 90 FL (80-99); MEAN PLATELET VOLUME 11.2 FL (7.4-10.4); MONOCYTES # (AUTO) 1.1 X 10^3 (0.0-1.0); MONOCYTES % (AUTO) 8 % (0-12); NEUTROPHILS % (AUTO) 82 % (42-75); PLATELET COUNT 285 10^3/uL (130-400); RED CELL DISTRIBUTION WIDTH 14.1 % (10.0-14.5); WHITE BLOOD COUNT 13.5 10^3/uL (4.3-11.0)
[2019-07-22 07:36] LABS: ALANINE AMINOTRANSFERASE 21 U/L (0-55); ALBUMIN 3.3 GM/DL (3.2-4.5); ALKALINE PHOSPHATASE 73 U/L (40-136); AMYLASE 57 U/L (25-125); BILIRUBIN,TOTAL 0.4 MG/DL (0.1-1.0); BUN/CREATININE RATIO 18; CALCIUM 8.3 MG/DL (8.5-10.1); CARBON DIOXIDE 23 MMOL/L (21-32); CHLORIDE 109 MMOL/L (98-107); CREATININE SERUM 0.84 MG/DL (0.60-1.30); GFR ESTIMATED > 60; GLUCOSE 137 MG/DL (70-105); LIPASE 94 U/L (8-78); POTASSIUM 3.9 MMOL/L (3.6-5.0); SODIUM 139 MMOL/L (135-145); TOTAL PROTEIN 5.7 GM/DL (6.4-8.2)
[2019-07-22 08:00] VITALS: BP 139/68
--- NOTE | 2019-07-22 08:53 | Progress Note - Surgery ---
SELENA ALTAMIRANO,MED STUDENT 07/22/19 0853: Subjective Date Seen by a Provider: Jul 22, 2019 Time Seen by a Provider: 07:45 Subjective/Events-last exam 1 day S/P laparoscopic cholecystectomy. Patient seen and examined. Mr. Carrizales states he has continued to have RUQ abdominal pain that he is rating an 8/10 on the pain scale. He states it is a different pain than prior to surgery and feels "more surface" rather than internal. He has not had a bowel movement since admission but states that is typical for him and he usually has a bm every 4 days. He states he has been passing a lot of gas. He takes stool softeners at home. He has been tolerating his soft diet well and denies any nausea/vomiting at this time. Review of Systems General: No Chills, No Fatigue HEENT: No Head Aches Pulmonary: No Dyspnea, No Cough Cardiovascular: No: Chest Pain Gastrointestinal: Abdominal Pain (RUQ), Constipation; No: Nausea, Vomiting, Diarrhea Musculoskeletal: neck pain, back pain, leg pain Neurological: Weakness (chronic LE ); No: Confusion Objective Exam Vital Signs Date Time Temp Pulse Resp B/P (MAP) Pulse Ox O2 Delivery O2 Flow Rate FiO2 07/22/19 08:34 96 Room Air 07/22/19 08:00 37.3 61 16 139/68 (91) 93 Room Air 07/22/19 04:00 36.9 55 16 139/78 (98) 95 Room Air 07/22/19 00:00 37.5 59 14 140/64 (89) 93 Room Air 07/21/19 20:00 Room Air 07/21/19 20:00 37.7 67 18 119/63 (81) 95 Room Air 07/21/19 16:00 36.9 82 16 111/56 (74) 94 Room Air 07/21/19 14:20 36.9 65 18 154/82 (106) 95 Room Air 07/21/19 14:20 36.5 20 144/86 (105) 95 Room Air 07/21/19 14:20 Room Air 07/21/19 14:15 Room Air 07/21/19 14:10 20 144/86 (105) Room Air 07/21/19 14:00 20 157/85 (109) 98 OxyMask 3 07/21/19 14:00 OxyMask 3 07/21/19 13:50 20 128/74 (92) 100 OxyMask 8 07/21/19 13:45 OxyMask 10 07/21/19 13:40 20 125/65 (85) 100 OxyMask 10 07/21/19 13:31 36.5 16 98/56 (70) 100 OxyMask 10 07/21/19 13:31 OxyMask 10 I & O 07/22/19 07:00 Intake Total 4090 ml Output Total 900 ml Balance 3190 ml Capillary Refill : Less Than 3 SecondsLess Than 3 Seconds General Appearance: No Apparent Distress, WD/WN HEENT: PERRL/EOMI, Moist Mucous Membranes Neck: Non Tender; No Lymphadenopathy (L), No Lymphadenopathy (R) Respiratory: Chest Non Tender, Lungs Clear, Normal Breath Sounds, No Accessory Muscle Use, No Respiratory Distress Cardiovascular: Regular Rate, Rhythm, No Murmur Peripheral Pulses: 2+ Radial Pulses (R), 2+ Radial Pulses (L) Gastrointestinal: normal bowel sounds, distended; No guarding, No rebound; tenderness (diffuse, worse at RUQ), hernia (umbilical) Extremity: No Calf Tenderness, No Pedal Edema Neurologic/Psychiatric: Alert, Oriented x3, Normal Mood/Affect, Abnormal Gait (ambulates with cane) Skin: Normal Color, Warm/Dry Results Lab Laboratory Tests 07/22/19 06:45: White Blood Count 13.5H, Red Blood Count 3.93L, Hemoglobin 11.7L, Hematocrit 35L , Mean Corpuscular Volume 90, Mean Corpuscular Hemoglobin 30, Mean Corpuscular Hemoglobin Concent 33, Red Cell Distribution Width 14.1, Platelet Count 285, Mean Platelet Volume 11.2H, Neutrophils (%) (Auto) 82H, Lymphocytes (%) (Auto) 10L, Monocytes (%) (Auto) 8, Eosinophils (%) (Auto) 0, Basophils (%) (Auto) 0, Neutrophils # (Auto) 11.0H, Lymphocytes # (Auto) 1.4, Monocytes # (Auto) 1.1H, Eosinophils # (Auto) 0.0, Basophils # (Auto) 0.0, Sodium Level 139, Potassium Level 3.9, Chloride Level 109H, Carbon Dioxide Level 23, Anion Gap 7, Blood Urea Nitrogen 15, Creatinine 0.84, Estimat Glomerular Filtration Rate > 60, BUN/Creatinine Ratio 18, Glucose Level 137H, Calcium Level 8.3L, Corrected Calcium 8.9, Total Bilirubin 0.4, Aspartate Amino Transf (AST/SGOT) 22, Alanine Aminotransferase (ALT/SGPT) 21, Alkaline Phosphatase 73, Total Protein 5.7L, Albumin 3.3, Amylase Level 57, Lipase 94H Assessment/Plan Assessment/Plan Assessment/Plan Acute Pancreatitis Acute Cholecystitis Cholelithiasis Duodenitis Constipation Continue IVF. Pain control and antiemetics as needed. Advance diet as tolerated. Begin home stool softeners (Senna) Clinical Quality Measures DVT/VTE Risk/Contraindication: Risk Factor Score Per Nursin RFS Level Per Nursing on Admit: 4+=Very High HARVINDER GAVIRIA DO 07/22/19 1444: Subjective Subjective/Events-last exam Patient states pain if still present but different. Feeling better overall and wanting to go home. He states his pain is always hard to control due to his chronic use. Tolerating diet. Not having any nausea or vomiting. Denies fever sweats chills shortness of breath or chest pain. Objective Exam General Appearance: No Apparent Distress, WD/WN HEENT: PERRL/EOMI Neck: Full Range of Motion, Non Tender Respiratory: Chest Non Tender, No Accessory Muscle Use, No Respiratory Distress Cardiovascular: Regular Rate, Rhythm Gastrointestinal: soft, tenderness (more at incisions, mild in the ruq), hernia (umbilical) Neurologic/Psychiatric: Alert, Oriented x3, Normal Mood/Affect Skin: Normal Color, Warm/Dry Lymphatic: No Adenopathy Assessment/Plan Assessment/Plan Assessment/Plan Acute Pancreatitis Acute Cholecystitis s/p lap nicola c ioc Cholelithiasis Duodenitis Constipation patient feeling better. His wbc did go up slightly but likely from surgery yesterday he is tolerating diet and not having nausea or emesis patient wanting to go home will start oral pain meds and if tolerates okay with him going home as he wishes. patient agrees with plan. Supervisory-Addendum Brief Verification & Attestation Participated in pt care: history, MDM, physical Personally performed: exam, history, MDM, supervision of care Care discussed with: Medical Student Procedures: n/a Results interpretation: Verified all documentation Verification and Attestation of Medical Student E/M Service A medical student performed and documented this service in my presence. I reviewed and verified all information documented by the medical student and made modifications to such information, when appropriate. I personally performed the physical exam and medical decision making. Harvinder Gaviria, Jul 22, 2019,14:44 SELENA ALTAMIRANO,MED STUDENT Jul 22, 2019 08:53 HARVINDER GAVIRIA DO Jul 22, 2019 14:44
[2019-07-22] MEDS ORDERED: NON-FORMULARY MEDICATION 1 EA EA (Oxycodone HCl 10 MG) PO PRN (11:45)
[2019-07-22] MEDS ORDERED: DOCUSATE SODIUM 100 MG (COLACE) CAP PO PRN (12:00)
--- NOTE | 2019-07-22 12:56 | Discharge Summary ---
Discharge Summary Hospital Course Was the Problem List Reviewed?: Yes Problems/Dx: (1) Acute pancreatitis Status: Acute (2) Duodenitis Status: Acute (3) Lumbosacral radiculopathy due to degenerative joint disease of spine Status: Acute Hospital Course Date of Admission: Jul 20, 2019 at 14:55 Admission Diagnosis : Family Physician/Provider: Frandy Francis MD Date of Discharge: 07/22/19 Discharge Diagnosis: Acute to 190s, acute pancreatitis, acute cholelithiasis with borderline cholecystitis, Chronic back pain Hospital Course: Patient had a short hospital course when he was admitted for acute duodenitis and pancreatitis was found to have suspicion for stones on CT scan and gallbladder ultrasound confirmed that with cholelithiasis and early cholecystitis so Dr. García performed uncomplicated cholecystectomy with good results and patient was much improved and agreeable for discharge and tolerating oral intake. Labs and Pending Lab Test: Laboratory Tests 07/22/19 06:45: White Blood Count 13.5H, Red Blood Count 3.93L, Hemoglobin 11.7L, Hematocrit 35L , Mean Corpuscular Volume 90, Mean Corpuscular Hemoglobin 30, Mean Corpuscular Hemoglobin Concent 33, Red Cell Distribution Width 14.1, Platelet Count 285, Mean Platelet Volume 11.2H, Neutrophils (%) (Auto) 82H, Lymphocytes (%) (Auto) 10L, Monocytes (%) (Auto) 8, Eosinophils (%) (Auto) 0, Basophils (%) (Auto) 0, Neutrophils # (Auto) 11.0H, Lymphocytes # (Auto) 1.4, Monocytes # (Auto) 1.1H, Eosinophils # (Auto) 0.0, Basophils # (Auto) 0.0, Sodium Level 139, Potassium Level 3.9, Chloride Level 109H, Carbon Dioxide Level 23, Anion Gap 7, Blood Urea Nitrogen 15, Creatinine 0.84, Estimat Glomerular Filtration Rate > 60, BUN/Creatinine Ratio 18, Glucose Level 137H, Calcium Level 8.3L, Corrected Calcium 8.9, Total Bilirubin 0.4, Aspartate Amino Transf (AST/SGOT) 22, Alanine Aminotransferase (ALT/SGPT) 21, Alkaline Phosphatase 73, Total Protein 5.7L, Albumin 3.3, Amylase Level 57, Lipase 94H Home Meds Active Reported Famotidine 20 Mg Tablet 20 Mg PO BID PRN Baclofen 10 Mg Tablet 10 Mg PO QID Oxycodone HCl 10 Mg Tablet 10 Mg PO Q6H PRN Montelukast Sodium 10 Mg Tablet 10 Mg PO HS Iprat-Albut 0.5-3(2.5) mg/3 ml (Ipratropium/Albuterol Sulfate) 3 Ml Ampul.neb 3 Ml NEB Q6H PRN Proair Hfa (Albuterol Sulfate) 1 Puff Puff 2 Puff IH Q4H PRN 1 PUFF = 90 MCG Breo Ellipta 100-25 Mcg INH (Fluticasone/Vilanterol) 1 Each Blst.w.dev 1 Puff INH 1200 Acetaminophen 500 Mg Tablet 1,000 Mg PO Q6H PRN TAKES 2 (500MG) TABLETS Senokot-S Tablet (Sennosides/Docusate Sodium) 1 Each Tablet 2-3 Tab PO HS Lisinopril 20 Mg Tablet 20 Mg PO 1000 Assessment/Pt Instructions [facility] one week Discharge Planning: <30 minutes discharge planning Discharge Instructions Discharge Diet: No Restrictions Discharge Physical Examination Vital Signs Vital Signs Date Time Temp Pulse Resp B/P (MAP) Pulse Ox O2 Delivery O2 Flow Rate FiO2 07/22/19 08:34 96 Room Air 07/22/19 08:00 37.3 61 16 139/68 (91) 07/21/19 14:00 3 General Appearance: No Apparent Distress, WD/WN Respiratory: Lungs Clear Cardiovascular: Regular Rate, Rhythm Neurologic/Psychiatric: Alert, Oriented x3, No Motor/Sensory Deficits, Normal Mood/Affect Allergies: Coded Allergies: No Known Allergies (Verified Allergy, Unknown, 11/04/15) Discharge Summary Date of Admission Jul 20, 2019 at 14:55 Date of Discharge Discharge Date: Jul 22, 2019 Admission Diagnosis Assessment: Duodenitis with pancreatitis Possible stones in GB Chronic back pain s/p epidural pain injection Wednesday in Plan: Appreciate Dr García Pain control IVF Discharge Diagnosis Assessment: Acute pancreatitis Acute duodenitis Acute cholecystitis Chronic back pain Plan: Choly Pain control (1) Acute pancreatitis Status: Acute (2) Duodenitis Status: Acute (3) Lumbosacral radiculopathy due to degenerative joint disease of spine Status: Acute Clinical Quality Measures DVT/VTE Risk/Contraindication: Risk Factor Score Per Nursin RFS Level Per Nursing on Admit: 4+=Very High DEEPAK OWEN DO Jul 22, 2019 12:56
--- NOTE | 2019-07-22 16:10 | NUR ---
WALKED IN CERNA, TOLERATED WELL, PASSING FLATUS, DRESSING DRY AND INTACT TO ABD INCISION, IV DC, SITE WITHOUT REDNESS OR SWELLING, UP IN CHAIR, VOIDING WITHOUT DIFFICULTY, CLEAR YELLOW URINE, DISCHARGE INSTRUCTIONS GIVEN, WAITING ON RIDE HOME, RATES PAIN 3 ON PAIN SCALE.
[2019-07-22 16:56] VITALS: BP 157/71
[2019-07-22 17:35] VITALS: BP 157/71
--- NOTE | 2019-07-22 17:35 | NUR ---
VANESSA MASSEY demonstrates understanding of discharge instructions and accurately returns instructions upon questioning. Copy of Post-Discharge Instructions and Medication Discharge Instructions given to patient. VANESSA MASSEY is able to manage continuing needs after discharge. Patients belongings returned to patient. Skin dry and intact; lap sites times four without redness or drainage. Patient discharged from [facility]- on 07/22/19 at 1735 . VANESSA MASSEY left floor via w/c, accompanied by staff and family.
--- NOTE | 2019-07-23 11:35 | Anesthesia-Regional Post-Op ---
Regional Patient Condition Mental Status: Alert, Oriented x3 Circulation: Same as Pre-Op Headache: Absent Sensation: Full Recovery Motor Block: Absent Post Op Complications Complications None Follow Up Care/Instructions Patient Instructions None needed. Anesthesia/Patient Condition Patient is doing well, no complaints, stable vital signs, no apparent adverse anesthesia problems. No complications reported per nursing. CONCETTA LEBRON CRNA Jul 23, 2019 11:35
== END 2019-07-22 17:35 | disposition home or self-care (01) | DRG 418 ==
LOC: EDUNIT# 11:36 → ER FS 11:37 → 4TH 14:55
PROVIDERS: ADMIT Internal Medicine; ATTEND Internal Medicine
PROC: BF101ZZ Fluoroscopy of Bile Ducts using Low Osmolar Contrast (ICD-10-PCS; 2019-07-21)
PROC: 0FT44ZZ Resection of Gallbladder, Percutaneous Endoscopic Approach (ICD-10-PCS; principal; 2019-07-21 11:48)
DX: K85.10 Biliary acute pancreatitis without necrosis or infection (principal); K80.00 Calculus of gallbladder with acute cholecystitis without obstruction; K29.80 Duodenitis without bleeding; M47.27 Other spondylosis with radiculopathy, lumbosacral region; J44.9 Chronic obstructive pulmonary disease, unspecified; I10 Essential (primary) hypertension; K59.03 Drug induced constipation; T40.605A Adverse effect of unspecified narcotics, initial encounter; M19.91 Primary osteoarthritis, unspecified site; G47.9 Sleep disorder, unspecified; F41.9 Anxiety disorder, unspecified; F32.9 Major depressive disorder, single episode, unspecified; M62.838 Other muscle spasm; Z87.891 Personal history of nicotine dependence
CPT/HCPCS: 36415; 74177; 76705; 80053; 81000; 82150; 83690; 85007; 85025; 85027; 87081; 96372; 96374; 96375

== ENCOUNTER 2022-12-01 22:38 | Emergency (ER) | payer MEDICARE ==
[~2022-12-01] VITALS: Ht 173.7 cm; Wt 74.8 kg
[~2022-12-01 22:38] MED LIST changes: +ALBU8.5H6 IH; +FAMO20TA5 PO; +FLUT1AER INH; +IPRA3AMP31 NEB; -LISI-552 PO; -LISI10TA2 PO; +LISI10TA25 PO; +LISI20TA26 PO; -MELA3TAB PO; +MELA3TAB39 PO; +METH-732 PO; -METH750T3 PO; +MONT-40 PO; -OXYC-465 PO; -OXYC-471 PO; +OXYC-556 PO; +OXYC10TA7 PO; +OXYC1TAB11 PO
--- NOTE | 2022-12-01 22:46 | ED Dyspnea ---
General Stated Complaint: STAGE 3 LUNG CANCER, O2 AT 77, COUGHING UP BLOOD History of Present Illness Date Seen by Provider: Dec 01, 2022 Time Seen by Provider: 22:45 Initial Comments 62-year-old male presents with cough, fever. He reports that he is just had some increased cough today mild increased feeling shortness of breath, has been chilling throughout the day. That he does have a history of stage III lung cancer. That he is just finished chemo recently. He occasionally coughs up a little pink or red-tinged sputum which he reports they told him was normal because of his lung cancer. He reports that most of his symptoms that has been going on throughout the day today. Allergies and Home Medications Allergies Coded Allergies: No Known Allergies (Verified Allergy, Unknown, 11/04/15) Patient Home Medication List Home Medication List Reviewed: Yes Acetaminophen (Acetaminophen) 500 Mg Tablet, 1,000 MG PO Q6H PRN for PAIN-MILD, (Reported) Entered as Reported by: YUAN MURRIETA on 11/04/152154 Albuterol Sulfate (Ventolin Hfa) 1 Puff Puff, 2 PUFF IH Q4H PRN for SHORTNESS OF BREATH, (Reported) Entered as Reported by: MERLIN GODWIN on 07/21/19 0854 Baclofen (Baclofen) 10 Mg Tablet, 10 MG PO QID, (Reported) Entered as Reported by: MERLIN GODWIN on 07/21/19 0854 Famotidine (Famotidine) 20 Mg Tablet, 20 MG PO BID PRN for HEARTBURN, (Reported) Entered as Reported by: MERLIN GODWIN on 07/21/19 0854 Fluticasone/Vilanterol (Breo Ellipta 100-25 Mcg INH) 1 Each Blst.w.dev, 1 PUFF INH 1200, (Reported) Entered as Reported by: MERLIN GODWIN on 07/21/19 0854 Ipratropium/Albuterol Sulfate (Iprat-Albut 0.5-3(2.5) mg/3 ml) 3 Ml Ampul.neb, 3 ML NEB Q6H PRN for SHORTNESS OF BREATH, (Reported) Entered as Reported by: MERLIN GODWIN on 07/21/19 0854 Levofloxacin (Levofloxacin) 500 Mg Tablet, 500 MG PO DAILY Prescribed by: RICHARD GRIFFITH on 12/02/22 0634 Lisinopril (Lisinopril) 20 Mg Tablet, 20 MG PO 1000, (Reported) Entered as Reported by: YUAN MURRIETA on 11/04/152154 Montelukast Sodium (Montelukast Sodium) 10 Mg Tablet, 10 MG PO HS, (Reported) Entered as Reported by: MERLIN GODWIN on 07/21/19 0854 Oxycodone HCl (Oxycodone HCl) 10 Mg Tablet, 10 MG PO Q6H PRN for PAIN-SEVERE, (Reported) Entered as Reported by: MERLIN GODWIN on 07/21/19 0854 Prednisone (Prednisone) 20 Mg Tab, 40 MG PO DAILY Prescribed by: RICHARD GRIFFITH on 12/02/22 0635 Sennosides/Docusate Sodium (Senokot-S Tablet) 1 Each Tablet, 2-3 TAB PO HS, (Reported) Entered as Reported by: YUAN MURRIETA on 11/04/152154 Review of Systems Review of Systems Constitutional: chills, malaise EENTM: no symptoms reported Respiratory: cough, hemoptysis, short of breath Cardiovascular: No chest pain, No palpitations Gastrointestinal: No abdominal pain, No nausea, No vomiting Musculoskeletal: no symptoms reported Skin: no symptoms reported Psychiatric/Neurological: No Symptoms Reported Past Ikobkwk-[id number]-Tqjjee Hx Seasonal Allergies Seasonal Allergies: No Past Medical History Surgeries: Yes Orthopedic Respiratory: Yes Asthma, COPD Currently Using CPAP: No Currently Using BIPAP: No Cardiac: Yes Hypertension Neurological: Yes (spasms of arms, legs sometimes) Genitourinary: No Gastrointestinal: Yes Chronic Constipation Musculoskeletal: Yes (legs spasm) Degenerate Disk Disease, Arthritis, Back Injury, Chronic Back Pain, Fractures, Spasms Endocrine: No HEENT: No Hearing Impairment: Denies Cancer: No Psychosocial: Yes (Melatonin for sleep) Sleep Difficulties, Anxiety, Depression Integumentary: No Blood Disorders: No Family Medical History Cancer, Diabetes, Other Conditions/Hx Physical Exam Vital Signs Vital Signs - First Documented 12/01/22 12/01/22 12/01/22 22:45 22:57 23:14 Temp 39.2 Pulse 99 Resp 20 B/P (MAP) 142/73 (96) Pulse Ox 89 O2 Delivery Room Air O2 Flow Rate 2.00 Capillary Refill : Height, Weight, BMI Height: 5'7.00" Weight: 185lbs. 0.0oz. 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 Skin: Normal Color, Warm/Dry Focused Exam Lactate Level 12/01/22 22:55: Lactic Acid Level 1.90 Lactic Acid Level Laboratory Tests Test 12/01/22 22:55 Lactic Acid Level 1.90 MMOL/L (0.50-2.00) Progress/Results/Core Measures Results/Orders Lab Results Laboratory Tests Test 12/01/22 22:55 Range/Units White Blood Count 10.1 4.3-11.0 10^3/uL Red Blood Count 3.46 L 4.30-5.52 10^6/uL Hemoglobin 10.4 L 13.3-17.7 g/dL Hematocrit 31 L 40-54 % Mean Corpuscular Volume 90 80-99 fL Mean Corpuscular Hemoglobin 30 25-34 pg Mean Corpuscular Hemoglobin Concent 34 32-36 g/dL Red Cell Distribution Width 14.7 H 10.0-14.5 % Platelet Count 248 130-400 10^3/uL Mean Platelet Volume 10.5 9.0-12.2 fL Immature Granulocyte % (Auto) 0 % Neutrophils (%) (Auto) 86 H 42-75 % Lymphocytes (%) (Auto) 6 L 12-44 % Monocytes (%) (Auto) 7 0-12 % Eosinophils (%) (Auto) 0 0-10 % Basophils (%) (Auto) 0 0-10 % Neutrophils # (Auto) 8.7 H 1.8-7.8 10^3/uL Lymphocytes # (Auto) 0.6 L 1.0-4.0 10^3/uL Monocytes # (Auto) 0.7 0.0-1.0 10^3/uL Eosinophils # (Auto) 0.0 0.0-0.3 10^3/uL Basophils # (Auto) 0.0 0.0-0.1 10^3/uL Immature Granulocyte # (Auto) 0.0 0.0-0.1 10^3/uL Neutrophils % (Manual) 82 % Lymphocytes % (Manual) 4 % Monocytes % (Manual) 2 % Eosinophils % (Manual) 1 % Band Neutrophils 11 % Platelet Estimate NORMAL Poikilocytosis SLIGHT Elliptocytes SLIGHT Blood Morphology Comment ABNORMAL Sodium Level 134 L 135-145 MMOL/L Potassium Level 3.4 L 3.6-5.0 MMOL/L Chloride Level 96 L 98-107 MMOL/L Carbon Dioxide Level 25 21-32 MMOL/L Anion Gap 13 5-14 MMOL/L Blood Urea Nitrogen 20 H 7-18 MG/DL Creatinine 1.47 H 0.60-1.30 MG/DL Estimat Glomerular Filtration Rate 54 BUN/Creatinine Ratio 14 Glucose Level 128 H 70-105 MG/DL Lactic Acid Level 1.90 0.50-2.00 MMOL/L Calcium Level 8.7 8.5-10.1 MG/DL Corrected Calcium 8.9 8.5-10.1 MG/DL Magnesium Level 1.3 L 1.6-2.4 MG/DL Total Bilirubin 0.3 0.1-1.0 MG/DL Aspartate Amino Transf (AST/SGOT) 19 5-34 U/L Alanine Aminotransferase (ALT/SGPT) 12 0-55 U/L Alkaline Phosphatase 86 40-136 U/L C-Reactive Protein 2.28 H <0.50 MG/DL Total Protein 7.0 6.4-8.2 GM/DL Albumin 3.8 3.2-4.5 GM/DL Influenza Type A (RT-PCR) Not Detected Not Detecte Influenza Type B (RT-PCR) Not Detected Not Detecte SARS-CoV-2 RNA (RT-PCR) Not Detected Not Detecte My Orders Orders - GRIFFITH,RICHARD L DO Cbc With Automated Diff (12/01/22 22:46) Comprehensive Metabolic Panel (12/01/22 22:46) Magnesium (12/01/22 22:46) Influenza A And B By Pcr (12/01/22 22:46) Crp Fs (12/01/22 22:46) Covid 19 Inhouse Test (12/01/22 22:46) Chest 1 View Ap/Pa Only (12/01/22 22:46) Albuterol/Ipra Inhalation Soln (Duoneb I (12/01/22 23:00) Dexamethasone Injection (Decadron Inje (12/01/22 23:00) Svn Small Volume Nebulizer (12/01/22 22:46) Lactic Acid Analyzer (12/01/22 22:47) Acetaminophen Tablet (Tylenol Tablet) (12/01/22 22:48) Manual Differential (12/01/22 22:55) Albuterol Pre-Mix Nebs (Rt) (Proventil (12/01/22 23:45) Svn Small Volume Nebulizer (12/01/22 23:34) Levofloxacin 750 Mg/150 Ml Iv (Levaquin (12/01/22 23:38) Albuterol Pre-Mix Nebs (Rt) (Proventil (12/01/22 23:36) Albuterol/Ipra Inhalation Soln (Duoneb I (12/02/22 06:30) Svn Small Volume Nebulizer (12/02/22 06:26) Medications Given in ED Vital Signs/I&O 12/01/22 12/01/22 12/01/22 12/01/22 22:45 22:56 22:57 23:14 Temp 39.2 39.2 Pulse 99 Resp 20 B/P (MAP) 142/73 (96) Pulse Ox 89 82 O2 Delivery Room Air Room Air Nasal Cannula O2 Flow Rate 2.00 12/01/22 12/01/22 12/02/22 12/02/22 23:50 23:50 01:17 01:18 Temp 38.3 36.9 Pulse 93 93 Resp 20 20 B/P (MAP) 108/57 (74) Pulse Ox 95 95 94 96 O2 Delivery Nasal Cannula Nasal Cannula Nasal Cannula Nasal Cannula O2 Flow Rate 2.00 2.00 1.00 1.00 12/02/22 12/02/22 12/02/22 03:50 06:47 07:11 Pulse 68 Resp 20 B/P (MAP) 116/55 Pulse Ox 94 96 91 O2 Delivery Room Air Room Air Room Air Progress Progress Note : Progress Note Patient's labs were reviewed by me. He does have slightly elevated CRP which could be from a viral syndrome versus his known neoplasm. Patient with some mild elevated creatinine. Patient has known lung neoplasm and recent chemotherapy. He did have some wheezing and decreased breath sounds. X-ray was reviewed and had questionable perihilar infiltrates in addition to his known neoplasm. He did respond to breathing treatments. Patient was offered admissi on however he would prefer to try home treatment at this time. His oxygen would drop into the 80s when he was sleeping. However when he was awake and alert it would respond appropriately up in the mid 90s. Since patient did not want admission it was at night where we were unable to get him home oxygen we monitored him in the emergency room throughout the night. He did well. 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 He will follow-up with his primary care provider today to have them arrange for home oxygen. Patient will be started on Levaquin since he had a fever and likely has not bronchitis in addition to his neoplasm. Diagnostic Imaging Diagonstic Imaging: Xray Plain Films/CT/US/NM/MRI: chest Comments Right lobe lung mass, questionable perihilar infiltrate Date of Exam:12/01/22 CHEST 1 VIEW AP/PA ONLY INDICATION: History of lung carcinoma. Cough and shortness of breath. EXAMINATION: Chest 12/01/2022. COMPARISONS: None. FINDINGS: There is a large masslike abnormality at the right lung base measuring 6 cm in greatest dimension. This is likely the known primary carcinoma. Vague density in the left upper lung is noted. There is a nodular density in the right midlung approximately 7 mm in size. There are no infiltrates. No effusions. No pneumothorax. Multiple left posterior old rib fractures noted. Heart and pulmonary vasculature normal. There is postoperative change and cervical spine with a chest port on the right tip in the SVC. IMPRESSION: 1. Masslike abnormality right lung base perhaps the known carcinoma. Other scattered nodules in both lungs suspected better characterized with CT imaging. Other findings as above. Departure Impression Primary Impression: Bronchitis Additional Impression: Lung cancer, lower lobe Qualified Codes: C34.31 - Malignant neoplasm of lower lobe, right bronchus or lung Disposition: 01 HOME, SELF-CARE Condition: Stable Departure-Patient Inst. Referrals: GUSTAVO COLLINS MD (PCP/Family) Primary Care Physician Patient Instructions: Bronchitis, Adult ED Add. Discharge Instructions: Please contact your primary care provider today or your oncologist to help arrange for home oxygen from when you are sleeping at night. Please discuss a sleep study with your primary care provider to evaluate for sleep apnea. Please use your home nebulizer every 4 hours for the next 24 hours then as needed Scripts Prednisone (Prednisone) 20 Mg Tab 40 MG PO DAILY, #6 TAB 0 Refills Prov: RICHARD GRIFFITH DO 12/02/22 Levofloxacin (Levofloxacin) 500 Mg Tablet 500 MG PO DAILY, #5 TAB 0 Refills Prov: RICHARD GRIFFITH DO 12/02/22 RICHARD GRIFFITH DO Dec 01, 2022 22:46
[2022-12-01] MEDS ORDERED: ACETAMINOPHEN 500 MG TAB (TYLENOL) PO STA (22:48)
[2022-12-01] MEDS ORDERED: RT-ALBUTEROL/IPRATROPIUM 3 ML (DUONEB) VIAL INH ONE (23:00)
[2022-12-01 23:19] LABS: BASOPHILS % (AUTO) 0 % (0-10); EOSINOPHILS % (AUTO) 0 % (0-10); HEMATOCRIT 31 % (40-54); HEMOGLOBIN 10.4 g/dL (13.3-17.7); LYMPHOCYTES # (AUTO) 0.6 10^3/uL (1.0-4.0); LYMPHOCYTES % (AUTO) 6 % (12-44); MEAN CORPUSCULAR HEMOGLOBIN 30 pg (25-34); MEAN CORPUSCULAR HGB CONC 34 g/dL (32-36); MEAN CORPUSCULAR VOLUME 90 fL (80-99); MEAN PLATELET VOLUME 10.5 fL (9.0-12.2); MONOCYTES # (AUTO) 0.7 10^3/uL (0.0-1.0); MONOCYTES % (AUTO) 7 % (0-12); NEUTROPHILS # (AUTO) 8.7 10^3/uL (1.8-7.8); NEUTROPHILS % (AUTO) 86 % (42-75); PLATELET COUNT 248 10^3/uL (130-400); WHITE BLOOD COUNT 10.1 10^3/uL (4.3-11.0)
[2022-12-01] MEDS ORDERED: RT-ALBUTEROL SULF 2.5 MG/3 ML PRE-MIX VIAL ONE (23:36)
[2022-12-01 23:43] LABS: BAND NEUTROPHILS 11 %; EOSINOPHILS % (MANUAL) 1 %; LYMPHOCYTES % (MANUAL) 4 %; MONOCYTES % (MANUAL) 2 %; NEUTROPHILS % (MANUAL) 82 %; PLATELET ESTIMATE NORMAL; POIKILOCYTOSIS SLIGHT; RBC MORPH ABNORMAL
[2022-12-01 23:44] LABS: ELLIPT/OVALOCYTES SLIGHT
[2022-12-01] MEDS ORDERED: RT-ALBUTEROL SULF 2.5 MG/3 ML PRE-MIX VIAL INH ONE (23:45)
[2022-12-01 23:46] LABS: ALBUMIN 3.8 GM/DL (3.2-4.5); BILIRUBIN,TOTAL 0.3 MG/DL (0.1-1.0); CALCIUM 8.7 MG/DL (8.5-10.1); CREATININE SERUM 1.47 MG/DL (0.60-1.30); MAGNESIUM 1.3 MG/DL (1.6-2.4); POTASSIUM 3.4 MMOL/L (3.6-5.0)
[2022-12-02] MEDS ORDERED: RT-ALBUTEROL/IPRATROPIUM 3 ML (DUONEB) VIAL INH ONE (06:30)
[2022-12-02] MEDS ORDERED: LEVO-55 PO (06:34)
[2022-12-02] MEDS ORDERED: PRD20T PO (06:35)
[2022-12-02 07:11] VITALS: BP 116/55
--- NOTE | 2022-12-02 07:24 | Diagnostic Imaging Report ---
INDICATION: History of lung carcinoma. Cough and shortness of breath. EXAMINATION: Chest 12/01/2022. COMPARISONS: None. FINDINGS: There is a large masslike abnormality at the right lung base measuring 6 cm in greatest dimension. This is likely the known primary carcinoma. Vague density in the left upper lung is noted. There is a nodular density in the right midlung approximately 7 mm in size. There are no infiltrates. No effusions. No pneumothorax. Multiple left posterior old rib fractures noted. Heart and pulmonary vasculature normal. There is postoperative change and cervical spine with a chest port on the right tip in the SVC. IMPRESSION: 1. Masslike abnormality right lung base perhaps the known carcinoma. Other scattered nodules in both lungs suspected better characterized with CT imaging. Other findings as above. Dictated by: Dictated on workstation # [id number]
== END 2022-12-02 07:11 | disposition home or self-care (01) ==
LOC: EDUNIT# 22:38 → ER FS 22:40
DX: J44.9 Chronic obstructive pulmonary disease, unspecified (principal); C34.31 Malignant neoplasm of lower lobe, right bronchus or lung; R79.89 Other specified abnormal findings of blood chemistry; Z92.21 Personal history of antineoplastic chemotherapy; Z20.822 Contact with and (suspected) exposure to COVID-19
CPT/HCPCS: 36415; 71045; 80053; 83605; 83735; 85007; 85027; 86141; 87636; 94640